=== PATIENT | male | born 1940 | race Caucasian/White ===

== ENCOUNTER 2019-04-07 12:20 | Day surgery (SDC) | payer OTHER ==
[2019-04-07] VITALS (7 sets, daily range): BP systolic 124–147; BP diastolic 64–85
[~2019-04-07] VITALS: Ht 177.8 cm; Wt 88.1 kg
[2019-04-07] MEDS ORDERED: FLEC150T PO (12:54)
[2019-04-07] MEDS ORDERED: EPLE25TA4 PO (12:54)
[2019-04-07] MEDS ORDERED: APIX5TAB3 PO (12:54)
[2019-04-07] MEDS ORDERED: ATOR20TA66 PO (12:54)
[2019-04-07] MEDS ORDERED: BISO1TAB38 PO (12:54)
[2019-04-07] MEDS ORDERED: AMLO5TAB PO (12:54)
[2019-04-07] MEDS ORDERED: normal saline 1,000 ML IV SCH (13:05)
[2019-04-07 13:19] LABS: BASOPHILS % (AUTO) 0.6 % (0-1); EOSINOPHILS # (AUTO) 0.1 X10'3 (0-0.9); EOSINOPHILS % (AUTO) 1.5 % (0-6); HEMATOCRIT 47.4 % (42.0-52.0); HEMOGLOBIN 16.2 g/dl (14.0-17.9); LYMPHOCYTES # (AUTO) 0.7 X10'3 (1.1-4.8); LYMPHOCYTES % (AUTO) 12.1 % (21-51); MEAN CORPUSCULAR HEMOGLOBIN 31.3 PG (27.0-31.0); MEAN CORPUSCULAR HGB CONC 34.2 g/dL (33.0-36.5); MEAN CORPUSCULAR VOLUME 91.6 FL (78-98); MEAN PLATELET VOLUME 7.6 FL (7.4-10.4); MONOCYTES # (AUTO) 0.6 X10'3 (0-0.9); NEUTROPHILS # (AUTO) 4.6 X10'3 (1.8-7.7); NEUTROPHILS % (AUTO) 75.8 % (42-75); PLATELET COUNT 183 X10'3 (140-440); RED BLOOD COUNT 5.17 X10'6 (4.70-6.10); RED CELL DISTRIBUTION WIDTH 14.1 % (11.5-14.5); WHITE BLOOD COUNT 6.1 X10'3 (4.5-11.0)
[2019-04-07 13:28] LABS: ALBUMIN 4.4 G/DL (3.4-5.0); ANION GAP 9 (8-16); BLOOD UREA NITROGEN 22 MG/DL (7-18); CALCIUM 9.5 MG/DL (8.5-10.1); CHLORIDE 105 MMOL/L (99-107); CREATININE 1.57 MG/DL (0.60-1.10); GLUCOSE 92 MG/DL (70-104); POTASSIUM 4.1 MMOL/L (3.5-5.1); SODIUM 141 MMOL/L (135-145); TOTAL CARBON DIOXIDE 27.3 MMOL/L (24-32); eGFR 43 ML/MIN
[2019-04-07] MEDS ORDERED: ceFAZolin 1000mg inj ONE (14:04)
[2019-04-07] MEDS ORDERED: vancomycin 1,000mg inj ONE (14:04)
[2019-04-07] MEDS ORDERED: LIDOcaine 1% W/epiNEPHrine 1:100,000 20ml vial ONE (14:04)
[2019-04-07] MEDS ORDERED: midazolam 2 mg/2 ml injection ONE ×2 (14:47→14:49)
[2019-04-07] MEDS ORDERED: fentaNYL/PF 50MCG/1 ML 2ML syringe ONE (14:47)
== END 2019-04-07 17:45 | disposition home or self-care (01) ==
LOC: SSTAY O 12:20
PROVIDERS: ATTEND Internal Medicine Cardiovascular Disease
DX: I44.2 Atrioventricular block, complete (principal); I48.0 Paroxysmal atrial fibrillation; E78.5 Hyperlipidemia, unspecified; Z87.11 Personal history of peptic ulcer disease; Z95.1 Presence of aortocoronary bypass graft; Z86.73 Personal history of transient ischemic attack (TIA), and cerebral infarction without residual deficits; Z98.890 Other specified postprocedural states; Z79.899 Other long term (current) drug therapy; Z88.8 Allergy status to other drugs, medicaments and biological substances
CPT/HCPCS: 33208; 36415; 71046; 80048; 83735; 85025; 85610; 93005; 99152; 99153; C1769; C1785; C1898; J0690; J2250; J3010; J3370; J7030; J7050; A4565; A4620

== ENCOUNTER 2019-06-29 03:08 | Inpatient (IN) | payer MEDICARE, OTHER ==
[~2019-06-29] VITALS: Ht 175.3 cm; Wt 89.2 kg
[~2019-06-29 03:08] MED LIST: AMLO5TAB PO; APIX5TAB3 PO; ATOR20TA66 PO; BISO1TAB38 PO; EPLE25TA4 PO; FLEC150T PO
[2019-06-29] MEDS ORDERED: normal saline 1000ML IV soln IVB ONE (03:20)
--- NOTE | 2019-06-29 03:37 | NUR ---
PT TO CT VIA STRETCHER AND MONITORING WITH RN
[2019-06-29 03:43] LABS: EOSINOPHILS # (AUTO) 0.2 X10'3 (0-0.9); EOSINOPHILS % (AUTO) 2.6 % (0-6); LYMPHOCYTES # (AUTO) 0.9 X10'3 (1.1-4.8); LYMPHOCYTES % (AUTO) 12.9 % (21-51); MONOCYTES # (AUTO) 0.7 X10'3 (0-0.9); PLATELET COUNT 172 X10'3 (140-440); RED CELL DISTRIBUTION WIDTH 14.4 % (11.5-14.5)
[2019-06-29 03:45] LABS: BASOPHILS % (AUTO) 0.5 % (0-1); MEAN CORPUSCULAR HEMOGLOBIN 28.1 PG (27.0-31.0); MEAN CORPUSCULAR HGB CONC 33.2 g/dL (33.0-36.5); MEAN CORPUSCULAR VOLUME 84.5 FL (78-98); MEAN PLATELET VOLUME 8.2 FL (7.4-10.4); MONOCYTES % (AUTO) 10.8 % (2-12); NEUTROPHILS % (AUTO) 73.2 % (42-75); RED BLOOD COUNT 4.62 X10'6 (4.70-6.10); WHITE BLOOD COUNT 6.8 X10'3 (4.5-11.0)
[2019-06-29 03:52] LABS: PARTIAL THROMBOPLASTIN TIME 29 SECONDS (22-32)
[2019-06-29 03:55] LABS: ALANINE AMINOTRANSFERASE 17 U/L (12-78); ALBUMIN 3.6 G/DL (3.4-5.0); ALBUMIN/GLOBULIN RATIO 1.1 (1.1-1.5); ALKALINE PHOSPHATASE 96 IU/L (46-116); ANION GAP 10 (8-16); ASPARTATE AMINO TRANSFERASE 18 U/L (10-37); BILIRUBIN,TOTAL 0.9 MG/DL (0.1-1.0); BLOOD UREA NITROGEN 24 MG/DL (7-18); BUN/CREATININE RATIO 14.7 (5.4-32.0); CALCIUM 9.4 MG/DL (8.5-10.1); CHLORIDE 107 MMOL/L (99-107); CREATININE 1.63 MG/DL (0.60-1.10); GLUCOSE 119 MG/DL (70-104); POTASSIUM 3.9 MMOL/L (3.5-5.1); SODIUM 142 MMOL/L (135-145); TOTAL CARBON DIOXIDE 25.3 MMOL/L (24-32); TOTAL PROTEIN 6.8 G/DL (6.4-8.2); eGFR 41 ML/MIN
[2019-06-29] MEDS ORDERED: APIX5TAB3 PO (04:01)
[2019-06-29] MEDS ORDERED: mag hydrox/Alum hydrox/simeth 30ml oral suspension PO PRN (05:05)
[2019-06-29] MEDS ORDERED: magnesium 2GM in 50ml NS 50 ML IV PRN (05:05)
[2019-06-29] MEDS ORDERED: magnesium Cl slow-release 64mg tablet PO PRN (05:05)
[2019-06-29] MEDS ORDERED: ondansetron/PF 4mg/2ml inj IV PRN (05:05)
[2019-06-29] MEDS ORDERED: potassium CL 10mEq/100ml bag 100 ML IV PRN ×2 (05:05)
[2019-06-29] MEDS ORDERED: magnesium hydroxide 30ml (MOM) UD suspension PO PRN (05:05)
[2019-06-29] MEDS ORDERED: acetaminophen 325mg tablet PO PRN (05:05)
[2019-06-29] MEDS ORDERED: magnesium 4gm in 100ml NS 100 ML IV PRN (05:05)
[2019-06-29] MEDS ORDERED: potassium Cl 20 mEq SR tablet PO PRN ×2 (05:05)
--- NOTE | 2019-06-29 06:43 | NUR ---
Received report from Gisela BRYAN RN.
--- NOTE | 2019-06-29 07:00 | NUR ---
Arrived to room 315 at this time.
[2019-06-29 08:00] VITALS: BP 144/83
[2019-06-29] MEDS: BISOPROLOL FUMARATE PO SCH (08:00)
[2019-06-29] MEDS: K and/or MAG REPLACEMENT MC SCH ×2 (08:00→20:00)
[2019-06-29] MEDS ORDERED: BISOPROLOL FUMARATE PO SCH (08:00)
[2019-06-29] MEDS: HCTZ PO SCH (08:00)
[2019-06-29] MEDS ORDERED: HCTZ PO SCH (08:00)
[2019-06-29] MEDS: apixaban 5mg tablet PO SCH ×2 (09:03→21:34)
[2019-06-29] MEDS: flecainide 50mg tablet PO SCH ×3 (09:03→21:34)
[2019-06-29 09:18] LABS: CLARITY,URINE CLEAR (Clear); COLOR,URINE YELLOW (Yellow); GLUCOSE, URINE NEGATIVE (Neg); KETONES,URINE NEGATIVE (Neg); LEUKOCYTE ESTERASE ,URINE NEGATIVE (Neg); NITRITES, URINE NEGATIVE (Neg); OCCULT BLOOD,URINE NEGATIVE (Neg); PROTEIN,URINE NEGATIVE (Neg); UROBILINOGEN,URINE 0.2 E.U/dL (0.2-1.0)
[2019-06-29 09:19] LABS: UA COLLECTION TYPE NON-SPECIFIED
[2019-06-29 11:00] VITALS: BP 135/72
[2019-06-29 15:00] VITALS: BP 143/77
[2019-06-29 18:00] VITALS: BP 173/104
--- NOTE | 2019-06-29 18:10 | NUR ---
Problems reprioritized. Patient report given, questions answered & plan of care reviewed with Jami BERUMEN.
--- NOTE | 2019-06-29 18:45 | NUR ---
received report from ATA Bill
[2019-06-29] MEDS: atorvastatin 20mg tablet PO SCH (21:00)
[2019-06-29 22:00] VITALS: BP 141/83
[2019-06-30] VITALS (12 sets, daily range): BP systolic 108–160; BP diastolic 65–89
[2019-06-30 06:16] LABS: BASOPHILS # (AUTO) 0.1 X10'3 (0-0.2); BASOPHILS % (AUTO) 1.2 % (0-1); EOSINOPHILS # (AUTO) 0.2 X10'3 (0-0.9); EOSINOPHILS % (AUTO) 3.6 % (0-6); HEMOGLOBIN 12.2 g/dl (14.0-17.9); LYMPHOCYTES # (AUTO) 0.9 X10'3 (1.1-4.8); LYMPHOCYTES % (AUTO) 16.2 % (21-51); MEAN CORPUSCULAR HEMOGLOBIN 27.9 PG (27.0-31.0); MEAN CORPUSCULAR HGB CONC 33.1 g/dL (33.0-36.5); MEAN CORPUSCULAR VOLUME 84.3 FL (78-98); MEAN PLATELET VOLUME 8.1 FL (7.4-10.4); MONOCYTES # (AUTO) 0.6 X10'3 (0-0.9); MONOCYTES % (AUTO) 10.5 % (2-12); NEUTROPHILS % (AUTO) 68.5 % (42-75); PLATELET COUNT 163 X10'3 (140-440); RED BLOOD COUNT 4.38 X10'6 (4.70-6.10); WHITE BLOOD COUNT 5.8 X10'3 (4.5-11.0)
--- NOTE | 2019-06-30 06:26 | NUR ---
gave report to ATA Bill
--- NOTE | 2019-06-30 06:30 | NUR ---
Patient in room MED 315. I have received report from Jami BERUMEN and had the opportunity to ask questions and assume patient care.
[2019-06-30 06:33] LABS: ALANINE AMINOTRANSFERASE 13 U/L (12-78); ALBUMIN 3.3 G/DL (3.4-5.0); ALBUMIN/GLOBULIN RATIO 1.2 (1.1-1.5); ALKALINE PHOSPHATASE 92 IU/L (46-116); ANION GAP 9 (8-16); ASPARTATE AMINO TRANSFERASE 16 U/L (10-37); BILIRUBIN,TOTAL 1.4 MG/DL (0.1-1.0); BLOOD UREA NITROGEN 20 MG/DL (7-18); BUN/CREATININE RATIO 13.5 (5.4-32.0); CALCIUM 8.6 MG/DL (8.5-10.1); CHLORIDE 108 MMOL/L (99-107); CREATININE 1.48 MG/DL (0.60-1.10); GLUCOSE 86 MG/DL (70-104); MAGNESIUM 1.9 MG/DL (1.5-2.4); SODIUM 143 MMOL/L (135-145); TOTAL CARBON DIOXIDE 26.5 MMOL/L (24-32); TOTAL PROTEIN 6.1 G/DL (6.4-8.2); eGFR 46 ML/MIN
[2019-06-30] MEDS: apixaban 5mg tablet PO SCH (08:00)
[2019-06-30] MEDS: K and/or MAG REPLACEMENT MC SCH ×2 (08:00→20:00)
[2019-06-30] MEDS: BISOPROLOL FUMARATE PO SCH (08:38)
[2019-06-30] MEDS: flecainide 50mg tablet PO SCH ×3 (08:38→20:39)
[2019-06-30] MEDS: HCTZ PO SCH (08:38)
--- NOTE | 2019-06-30 14:48 | NUR ---
[facility] laborer tan house RN here for transport down for pacemaker lead revision at this time with Dr. Dobbins.
[2019-06-30] MEDS ORDERED: proCHLORperazine 10 MG/2 ml inj ONE (15:00)
[2019-06-30] MEDS ORDERED: fentaNYL/PF 50MCG/1 ML 2ML syringe ONE ×3 (15:01→17:26)
[2019-06-30] MEDS ORDERED: vancomycin 1,000mg inj ONE (15:01)
[2019-06-30] MEDS ORDERED: midazolam 2 mg/2 ml injection ONE ×3 (15:01→16:25)
[2019-06-30] MEDS ORDERED: ceFAZolin 1000mg inj ONE ×2 (15:02→15:03)
[2019-06-30] MEDS ORDERED: LIDOcaine 1% W/epiNEPHrine 1:100,000 20ml vial ONE (15:27)
[2019-06-30] MEDS ORDERED: iohexol 350MG/ML 100ml bottle IV ONE (17:06)
--- NOTE | 2019-06-30 17:44 | NUR ---
Dr. Espinoza called re: patient rectal bleeding. Patient states the bleed is from his hemorrhoids which he's had for a long time. MD wishes to get a colonoscopy for patient if he consents. Will ask patient how he feels about this once he returns from pacer revision. Will pass this information onto noc shift nurse.
--- NOTE | 2019-06-30 18:10 | NUR ---
Patient in room MED 315. I have received report from Landy BERUMEN and had the opportunity to ask questions and assume patient care.
--- NOTE | 2019-06-30 18:21 | NUR ---
Problems reprioritized. Patient report given, questions answered & plan of care reviewed with Yesi BERUMEN.
--- NOTE | 2019-06-30 18:30 | NUR ---
PT ARRIVED ON UNIT IN STABLE CONDITION IN NO APPARENT DISTRESS, AT BEDSIDE.
[2019-06-30] MEDS: linezolid 600mg tablet PO SCH (20:39)
[2019-06-30] MEDS: atorvastatin 20mg tablet PO SCH (20:40)
[2019-07-01 02:00] VITALS: BP 146/62
[2019-07-01 06:17] LABS: BASOPHILS % (AUTO) 0.6 % (0-1); EOSINOPHILS # (AUTO) 0.2 X10'3 (0-0.9); EOSINOPHILS % (AUTO) 2.5 % (0-6); HEMATOCRIT 36.1 % (42.0-52.0); HEMOGLOBIN 11.9 g/dl (14.0-17.9); LYMPHOCYTES # (AUTO) 0.8 X10'3 (1.1-4.8); LYMPHOCYTES % (AUTO) 11.7 % (21-51); MEAN CORPUSCULAR HEMOGLOBIN 27.7 PG (27.0-31.0); MEAN CORPUSCULAR HGB CONC 32.9 g/dL (33.0-36.5); MEAN CORPUSCULAR VOLUME 84.2 FL (78-98); MEAN PLATELET VOLUME 8.2 FL (7.4-10.4); MONOCYTES # (AUTO) 0.8 X10'3 (0-0.9); MONOCYTES % (AUTO) 11.6 % (2-12); NEUTROPHILS % (AUTO) 73.6 % (42-75); PLATELET COUNT 181 X10'3 (140-440); RED BLOOD COUNT 4.29 X10'6 (4.70-6.10); RED CELL DISTRIBUTION WIDTH 14.3 % (11.5-14.5); WHITE BLOOD COUNT 6.9 X10'3 (4.5-11.0)
[2019-07-01 06:30] VITALS: BP 126/82
--- NOTE | 2019-07-01 06:30 | NUR ---
Patient in room MED 315. I have received report from RICARDO BERUMEN and had the opportunity to ask questions and assume patient care.
--- NOTE | 2019-07-01 06:45 | NUR ---
Problems reprioritized. Patient report given, questions answered & plan of care reviewed with Landy BERUMEN.
[2019-07-01 06:47] LABS: ALANINE AMINOTRANSFERASE 13 U/L (12-78); ALBUMIN 3.3 G/DL (3.4-5.0); ALBUMIN/GLOBULIN RATIO 1.1 (1.1-1.5); ALKALINE PHOSPHATASE 91 IU/L (46-116); ANION GAP 9 (8-16); ASPARTATE AMINO TRANSFERASE 17 U/L (10-37); BILIRUBIN,TOTAL 1.3 MG/DL (0.1-1.0); BLOOD UREA NITROGEN 18 MG/DL (7-18); BUN/CREATININE RATIO 12.3 (5.4-32.0); CALCIUM 8.5 MG/DL (8.5-10.1); CHLORIDE 106 MMOL/L (99-107); CREATININE 1.46 MG/DL (0.60-1.10); GLUCOSE 76 MG/DL (70-104); MAGNESIUM 1.8 MG/DL (1.5-2.4); POTASSIUM 4.1 MMOL/L (3.5-5.1); SODIUM 142 MMOL/L (135-145); TOTAL PROTEIN 6.2 G/DL (6.4-8.2); eGFR 47 ML/MIN
[2019-07-01] MEDS: K and/or MAG REPLACEMENT MC SCH (08:00)
[2019-07-01] MEDS: HCTZ PO SCH (08:41)
[2019-07-01] MEDS: BISOPROLOL FUMARATE PO SCH (08:41)
[2019-07-01] MEDS: flecainide 50mg tablet PO SCH ×2 (08:42→13:34)
[2019-07-01] MEDS: linezolid 600mg tablet PO SCH (08:42)
--- NOTE | 2019-07-01 10:52 | NUR ---
PAGED HOSPITALIST, "ERI Dowling63- NADIA PADILLA IN 315, DISCHARGING TODAY? DR. HOROWITZ STILL TO ROUND."
[2019-07-01 11:00] VITALS: BP 119/72
--- NOTE | 2019-07-01 11:30 | NUR ---
Dr. Espinoza rounded on patient, doesn't feel comfortable discharging patient at this time with redness and swelling noted. Stated that this nurse will call Dr. Dobbins.
--- NOTE | 2019-07-01 11:55 | NUR ---
Called Dr. Dobbins to make aware of new redness extending beyond 0630 markings and more swelling noted, applied pressure dressing and po antibiotics are ordered. No new orders noted, Dr. Dobbins states he'll be in this afternoon to see patient. at bedside.
--- NOTE | 2019-07-01 13:15 | NUR ---
DR. HOROWITZ AT BEDSIDE, PLANS TO DISCHARGE TODAY
--- NOTE | 2019-07-01 14:57 | NUR ---
Pt receiving Zyvox seen at bedside with SO present provided with written and verbal low tyramine nutrition therapy education. All of patient/SO questions were answered at this time. RD contact information provided. Will continue to follow. Addendum: 07/01/19 at [address] Amended: Links added.
[2019-07-01 15:00] VITALS: BP 107/62
--- NOTE | 2019-07-01 16:06 | NUR ---
Called medication Zyvox into [facility] pharmacy on . IV removed, Tele removed. Discharge instructions discussed, verbalized understanding. Belongings to go home with patient. Addendum: 07/01/19 at 1613 by Landy Kerns RN Returned 2 home medications to patient at this time.
--- NOTE | 2019-07-01 16:18 | NUR ---
Patient escorted out via staff to car per staff, ambulated to patient vehicle without event. Got dressed and took belongings home. Patient eager to go home and will warp picker Zyvox from [facility] pharmacy. Written prescription in hand.
[2019-07-01] MEDS ORDERED: lactobacillus rhamnosus 10,000 MMU CELLS/CAPSULE PO SCH (20:00)
[2019-07-01] MEDS ORDERED: LINE600T11 PO (23:15)
--- NOTE | 2019-07-03 10:24 | NUR ---
Case management DC follow up: Pt re-admitted into the hospital. post op complications Addendum: 07/03/19 at 1025 by Layla Reyes RN Case management DC follow up: Pt re-admitted into the hospital. post op complications [id number]
[2019-07-05] MEDS ORDERED: CEPH500C5 PO (10:42)
== END 2019-07-01 16:20 | disposition home or self-care (01) | DRG 242 ==
LOC: ER 03:09 → ED HOLD 05:05 → MED 3N 07:00 → CMPBEDREQ 07:09
PROVIDERS: ADMIT Internal Medicine; ATTEND Family Medicine
PROC: 0JH607Z Insertion of Cardiac Resynchronization Pacemaker Pulse Generator into Chest Subcutaneous Tissue and Fascia, Open Approach (ICD-10-PCS; principal; 2019-06-30)
PROC: 02HK3JZ Insertion of Pacemaker Lead into Right Ventricle, Percutaneous Approach (ICD-10-PCS; 2019-06-30)
PROC: 0JPT0PZ Removal of Cardiac Rhythm Related Device from Trunk Subcutaneous Tissue and Fascia, Open Approach (ICD-10-PCS; 2019-06-30)
PROC: 02PA3MZ Removal of Cardiac Lead from Heart, Percutaneous Approach (ICD-10-PCS; 2019-06-30)
PROC: 02H43JZ Insertion of Pacemaker Lead into Coronary Vein, Percutaneous Approach (ICD-10-PCS; 2019-06-30)
PROC: B2151ZZ Fluoroscopy of Left Heart using Low Osmolar Contrast (ICD-10-PCS; 2019-06-30)
DX: I44.2 Atrioventricular block, complete (principal); I21.A1 Myocardial infarction type 2; N17.9 Acute kidney failure, unspecified; I42.8 Other cardiomyopathies; N18.3 Chronic kidney disease, stage 3 (moderate); I48.91 Unspecified atrial fibrillation; I47.2 Ventricular tachycardia; E78.5 Hyperlipidemia, unspecified; I25.10 Atherosclerotic heart disease of native coronary artery without angina pectoris; S09.90XA Unspecified injury of head, initial encounter; N18.9 Chronic kidney disease, unspecified; K64.9 Unspecified hemorrhoids; Z95.1 Presence of aortocoronary bypass graft; Z95.0 Presence of cardiac pacemaker; Z79.01 Long term (current) use of anticoagulants; W18.39XA Other fall on same level, initial encounter; Y93.89 Activity, other specified; Y92.89 Other specified places as the place of occurrence of the external cause; Y99.8 Other external cause status
CPT/HCPCS: 33221; 33225; 36415; 70450; 71045; 71046; 80053; 81003; 83605; 83735; 83880; 84145; 84484; 85025; 85610; 85730; 87040; 87081; 93005; 99152; 99153; 99285; A4565; A4620; C1769; C1777; C1882; C1887; C1894; C1898; C1900; G0378; J0690; J0780; J2250; J3010; J3370; J7030; J7050; Q9967

== ENCOUNTER 2019-09-13 12:57 | Inpatient (IN) | payer MEDICARE, OTHER ==
[~2019-09-13] VITALS: Ht 177.8 cm; Wt 79.5 kg
[~2019-09-13 12:57] MED LIST changes: -AMLO5TAB PO; +CEPH500C5 PO
--- NOTE | 2019-09-13 14:30 | NUR ---
talked with pt's . Per "he doesn't know what he's talking about". pt has back pain, hemerrhoids that are bleeding, fluid in lungs and needs lab work. Elizabeth Beck [phone]
[2019-09-13 16:04] LABS: BASOPHILS # (AUTO) 0.1 X10'3 (0-0.2); BASOPHILS % (AUTO) 0.9 % (0-1); EOSINOPHILS % (AUTO) 0.7 % (0-6); HEMATOCRIT 32.7 % (42.0-52.0); HEMOGLOBIN 10.2 g/dl (14.0-17.9); LYMPHOCYTES # (AUTO) 0.7 X10'3 (1.1-4.8); MEAN CORPUSCULAR HGB CONC 31.1 g/dL (33.0-36.5); MEAN CORPUSCULAR VOLUME 77.2 FL (78-98); MEAN PLATELET VOLUME 8.5 FL (7.4-10.4); MONOCYTES # (AUTO) 0.7 X10'3 (0-0.9); MONOCYTES % (AUTO) 11.6 % (2-12); NEUTROPHILS # (AUTO) 4.3 X10'3 (1.8-7.7); NEUTROPHILS % (AUTO) 74.8 % (42-75); PLATELET COUNT 186 X10'3 (140-440); RED BLOOD COUNT 4.23 X10'6 (4.70-6.10); RED CELL DISTRIBUTION WIDTH 16.8 % (11.5-14.5); WHITE BLOOD COUNT 5.7 X10'3 (4.5-11.0)
[2019-09-13 16:16] LABS: ALANINE AMINOTRANSFERASE 33 U/L (12-78); ALBUMIN 3.4 G/DL (3.4-5.0); ALBUMIN/GLOBULIN RATIO 1.3 (1.1-1.5); ALKALINE PHOSPHATASE 105 IU/L (46-116); ANION GAP 9 (8-16); ASPARTATE AMINO TRANSFERASE 28 U/L (10-37); BILIRUBIN,TOTAL 1.6 MG/DL (0.1-1.0); BLOOD UREA NITROGEN 29 MG/DL (7-18); BUN/CREATININE RATIO 16.9 (5.4-32.0); CALCIUM 9.2 MG/DL (8.5-10.1); CHLORIDE 104 MMOL/L (99-107); CREATININE 1.72 MG/DL (0.60-1.10); GLUCOSE 97 MG/DL (70-104); POTASSIUM 3.8 MMOL/L (3.5-5.1); SODIUM 139 MMOL/L (135-145); TOTAL CARBON DIOXIDE 26.2 MMOL/L (24-32); TOTAL PROTEIN 6.1 G/DL (6.4-8.2); eGFR 38 ML/MIN
[2019-09-13] MEDS ORDERED: heparin 10,000 units/1 ML INJ IV ONE (16:35)
[2019-09-13] MEDS ORDERED: aspirin 81mg tab.chew PO ONE (16:35)
--- NOTE | 2019-09-13 16:46 | NUR ---
pt out to ct via wheelchair with unified communications architect
[2019-09-13] MEDS ORDERED: iohexol 350MG/ML 100ml bottle IV ONE (16:47)
--- NOTE | 2019-09-13 16:58 | NUR ---
pt returns from ct
[2019-09-13] MEDS: heparin 25,000 UNIT/250ml bag 250 ML IV SCH (17:01)
[2019-09-13] MEDS ORDERED: HYDROcodone/acetaminophen 5mg/325mg tablet PO PRN (17:20)
[2019-09-13] MEDS ORDERED: ondansetron/PF 4mg/2ml inj IV PRN (17:20)
[2019-09-13] MEDS ORDERED: magnesium hydroxide 30ml (MOM) UD suspension PO PRN (17:20)
[2019-09-13] MEDS ORDERED: nitroGLYCERIN 0.4mg SUBLingual tab SL PRN (17:20)
[2019-09-13] MEDS ORDERED: morphine 2 MG/ML inj. syringe IV PRN ×2 (17:20)
[2019-09-13] MEDS ORDERED: acetaminophen 325mg tablet PO PRN (17:20)
[2019-09-13] MEDS ORDERED: mag hydrox/Alum hydrox/simeth 30ml oral suspension PO PRN (17:20)
[2019-09-13] MEDS ORDERED: POTA-82 PO (20:03)
[2019-09-13] MEDS ORDERED: FURO20TA4 PO (20:03)
[2019-09-13] MEDS ORDERED: FLEC100T2 PO (20:03)
[2019-09-13] MEDS ORDERED: AMLO5TAB16 PO (20:03)
--- NOTE | 2019-09-13 22:01 | NUR ---
Patient in room ED 10. I have received report from ATA Mnedez and had the opportunity to ask questions and assume patient care.
[2019-09-13 22:30] VITALS: BP 134/76
[2019-09-14] VITALS (17 sets, daily range): BP systolic 110–147; BP diastolic 57–99
[2019-09-14] MEDS: heparin 25,000 UNIT/250ml bag 250 ML IV SCH (01:08)
[2019-09-14 04:22] LABS: ALBUMIN 3.3 G/DL (3.4-5.0); ANION GAP 8 (8-16); BLOOD UREA NITROGEN 29 MG/DL (7-18); BUN/CREATININE RATIO 17.5 (5.4-32.0); CHLORIDE 104 MMOL/L (99-107); CHOL/HDL RATIO 2.1 (0.00-4.99); CHOLESTEROL 66 MG/DL (0-200); CREATININE 1.66 MG/DL (0.60-1.10); GLUCOSE 86 MG/DL (70-104); HDL CHOLESTEROL 31 MG/DL (35-60); LDL CHOLESTEROL 30 MG/DL (50-100); POTASSIUM 3.8 MMOL/L (3.5-5.1); SODIUM 138 MMOL/L (135-145); TOTAL CARBON DIOXIDE 25.7 MMOL/L (24-32); TRIGLYCERIDES 44 MG/DL (20-135); eGFR 40 ML/MIN
--- NOTE | 2019-09-14 06:10 | NUR ---
Patient in room PCU 3016. I have received report from ATA Lea and had the opportunity to ask questions and assume patient care.
--- NOTE | 2019-09-14 06:25 | NUR ---
Problems reprioritized. Patient report given, questions answered & plan of care reviewed with ATA Ureña.
[2019-09-14] MEDS: aspirin 81mg tablet.DR PO SCH (07:19)
[2019-09-14 07:37] LABS: HEMATOCRIT 31.6 % (42.0-52.0); MEAN CORPUSCULAR HEMOGLOBIN 24.3 PG (27.0-31.0); MEAN CORPUSCULAR HGB CONC 31.6 g/dL (33.0-36.5); MEAN CORPUSCULAR VOLUME 76.8 FL (78-98); PLATELET COUNT 180 X10'3 (140-440); RED BLOOD COUNT 4.11 X10'6 (4.70-6.10); RED CELL DISTRIBUTION WIDTH 16.6 % (11.5-14.5); WHITE BLOOD COUNT 4.6 X10'3 (4.5-11.0)
[2019-09-14 07:38] LABS: BASOPHILS # (AUTO) 0.1 X10'3 (0-0.2); BASOPHILS % (AUTO) 1.8 % (0-1); EOSINOPHILS # (AUTO) 0.1 X10'3 (0-0.9); EOSINOPHILS % (AUTO) 3.1 % (0-6); LYMPHOCYTES # (AUTO) 0.8 X10'3 (1.1-4.8); LYMPHOCYTES % (AUTO) 17.1 % (21-51); MEAN PLATELET VOLUME 8.4 FL (7.4-10.4); MONOCYTES # (AUTO) 0.6 X10'3 (0-0.9); MONOCYTES % (AUTO) 13.9 % (2-12); NEUTROPHILS % (AUTO) 64.1 % (42-75)
[2019-09-14] MEDS: flecainide 50mg tablet PO SCH ×3 (09:38→20:45)
[2019-09-14] MEDS: apixaban 5mg tablet PO SCH ×2 (09:39→20:45)
[2019-09-14] MEDS: amLODIPine 5mg tablet PO SCH (09:39)
--- NOTE | 2019-09-14 09:45 | NUR ---
Received orders to stop heparin GTTS per Dr. Gallagher
--- NOTE | 2019-09-14 09:55 | NUR ---
Spoke to Dr. Gallagher regarding plan of care. She ordered 1 unit of RBC to be given after consent and an occult stool sample is retrieved. Repeat Hemogram 1 hour after blood transfusion is complete
--- NOTE | 2019-09-14 13:14 | NUR ---
PAGER ID: [phone] MESSAGE: [phone] Austen Geronimo: TONIA we collected stool for occult bleeding, patient does have active hemorrhoids and has significant bleeding, will transfuse 1 unit of blood and repeat hemagram. will keep you updated. thanks Edilia [phone]
[2019-09-14 13:21] LABS: OCCULT BLOOD STOOL POSITIVE (Neg)
[2019-09-14] MEDS ORDERED: PSYL575P22 PO (15:06)
--- NOTE | 2019-09-14 15:15 | NUR ---
Prior to blood reaching the patient, patient reports feeling dizziness and short of breath. Requested charge nurse and preceptor to assess patient. Currently stable vital signs. Blood administration resumed at 60ml's/hr per protocol.
--- NOTE | 2019-09-14 16:26 | NUR ---
Awaiting MD orders. PAGER ID: [phone] MESSAGE: Re: [id number] Austen Geronimo. Pt. verbalizes intermittent SOB and dizziness prior to blood administration. Blood started at 1500, VS remained stable. Left Lung base now diminished/ wheezes present. Do you want a CXRAY/RT eval? Collette [facility]#[id number]
--- NOTE | 2019-09-14 18:00 | NUR ---
Patient in room PCU 3016. I have received report from Dave and had the opportunity to ask questions and assume patient care.
[2019-09-14] MEDS: DOBUTamine-DoBUTrex 500mg/D5W 250 ML IV SCH (18:05)
--- NOTE | 2019-09-14 18:15 | NUR ---
Patient in room PCU 3016. I have received report from ATA Beatty and had the opportunity to ask questions and assume patient care.
--- NOTE | 2019-09-14 18:21 | NUR ---
Problems reprioritized. Patient report given, questions answered & plan of care reviewed with Neeru BERUMEN.
[2019-09-14 18:39] LABS: HEMOGLOBIN 10.7 g/dl (14.0-17.9); MEAN CORPUSCULAR HEMOGLOBIN 24.5 PG (27.0-31.0); MEAN CORPUSCULAR HGB CONC 31.3 g/dL (33.0-36.5); MEAN CORPUSCULAR VOLUME 78.3 FL (78-98); MEAN PLATELET VOLUME 8.2 FL (7.4-10.4); PLATELET COUNT 184 X10'3 (140-440); RED BLOOD COUNT 4.35 X10'6 (4.70-6.10); RED CELL DISTRIBUTION WIDTH 16.9 % (11.5-14.5); WHITE BLOOD COUNT 5.4 X10'3 (4.5-11.0)
--- NOTE | 2019-09-14 19:42 | NUR ---
Patient said he is ok to take atorvastatin and has been taking it at home without symptoms. He had symptoms instead when the atorvastatin was on hold by his doctor.
[2019-09-14] MEDS: atorvastatin 20mg tablet PO SCH (20:45)
--- NOTE | 2019-09-14 21:00 | NUR ---
Patient has atorvastatin listed as an allergy. I asked him before giving him his evening dose what kind of reaction he has to it. He stated that he takes it in his daily medications at home and tolerates it just fine.
[2019-09-15] VITALS (12 sets, daily range): BP systolic 103–134; BP diastolic 13–83
--- NOTE | 2019-09-15 02:06 | NUR ---
MD notified for patient bleeding out of hemorrhoids more than usual and he was on a heparin drop that was stopped because of increase in bleeding as well. MD gave new orders to try Syds, but pharmacy does not carry that or anything similar. MD called again and notified Tucks is not available and said ok and no new orders at this time.
--- NOTE | 2019-09-15 05:48 | NUR ---
Orientee documentation: I have reviewed and agree with all interventions, assessments performed and documented by Hellen Layne RN. Orientee Medication Administration: For the medication-pass during this shift, all medication were reviewed, dispensed, administered and documented per hospital policy by Hellen Layne RN.
--- NOTE | 2019-09-15 06:05 | NUR ---
Problems reprioritized. Patient report given, questions answered & plan of care reviewed with Vick[].
[2019-09-15 06:18] LABS: ALBUMIN 3.1 G/DL (3.4-5.0); ANION GAP 7 (8-16); BLOOD UREA NITROGEN 24 MG/DL (7-18); BUN/CREATININE RATIO 15.1 (5.4-32.0); CALCIUM 8.7 MG/DL (8.5-10.1); CHLORIDE 106 MMOL/L (99-107); CREATININE 1.59 MG/DL (0.60-1.10); GLUCOSE 90 MG/DL (70-104); POTASSIUM 3.8 MMOL/L (3.5-5.1); SODIUM 141 MMOL/L (135-145); TOTAL CARBON DIOXIDE 27.6 MMOL/L (24-32); eGFR 42 ML/MIN
--- NOTE | 2019-09-15 06:18 | NUR ---
Patient in room PCU 3016. I have received report from Neeru BERUMEN and had the opportunity to ask questions and assume patient care.
[2019-09-15 06:19] LABS: BASOPHILS % (AUTO) 0.5 % (0-1); EOSINOPHILS # (AUTO) 0.1 X10'3 (0-0.9); EOSINOPHILS % (AUTO) 0.9 % (0-6); HEMATOCRIT 29.7 % (42.0-52.0); HEMOGLOBIN 9.6 g/dl (14.0-17.9); LYMPHOCYTES # (AUTO) 0.5 X10'3 (1.1-4.8); LYMPHOCYTES % (AUTO) 8.7 % (21-51); MEAN CORPUSCULAR HEMOGLOBIN 24.7 PG (27.0-31.0); MEAN CORPUSCULAR HGB CONC 32.4 g/dL (33.0-36.5); MEAN CORPUSCULAR VOLUME 76.2 FL (78-98); MEAN PLATELET VOLUME 8.4 FL (7.4-10.4); MONOCYTES # (AUTO) 0.6 X10'3 (0-0.9); MONOCYTES % (AUTO) 10.6 % (2-12); NEUTROPHILS # (AUTO) 4.9 X10'3 (1.8-7.7); NEUTROPHILS % (AUTO) 79.3 % (42-75); PLATELET COUNT 177 X10'3 (140-440); RED BLOOD COUNT 3.89 X10'6 (4.70-6.10); RED CELL DISTRIBUTION WIDTH 16.3 % (11.5-14.5); WHITE BLOOD COUNT 6.1 X10'3 (4.5-11.0)
[2019-09-15] MEDS: apixaban 5mg tablet PO SCH ×2 (08:11→19:26)
[2019-09-15] MEDS: flecainide 50mg tablet PO SCH ×3 (08:11→21:20)
[2019-09-15] MEDS: amLODIPine 5mg tablet PO SCH (08:11)
[2019-09-15] MEDS: aspirin 81mg tablet.DR PO SCH (08:11)
[2019-09-15] MEDS ORDERED: hydrocortisone acetate 25mg rectal suppository RC PRN (11:05)
--- NOTE | 2019-09-15 18:15 | NUR ---
Problems reprioritized. Patient report given, questions answered & plan of care reviewed with Neeru BERUMEN.
--- NOTE | 2019-09-15 18:32 | NUR ---
PAGER ID: [phone] MESSAGE: [phone] Austen Gernoimo: Patient has become agitated and confused and is threatening to remove PICC line, can we get restraint orders? thanks luther
[2019-09-15] MEDS ORDERED: ALPRAZolam 0.25mg tablet PO PRN (18:35)
--- NOTE | 2019-09-15 18:35 | NUR ---
received orders for xanax 0.25mg x1 now per dr. matthews
--- NOTE | 2019-09-15 18:55 | NUR ---
PAGER ID: [phone] MESSAGE: Patient will not take Xanax PO. Can you please order a med that we can do IV or shot. Xanax is only PO Addendum: 09/15/19 at 2000 by Neeru Rae RN Patient would not take PO pill.
[2019-09-15] MEDS: LORazepam 2 mg/ml vial IV PRN (19:26)
--- NOTE | 2019-09-15 19:57 | NUR ---
MD called and notified for patient confused and trying to leave the hospital constantly trying to pull out PICC line. MD gave new orders for Ativan IV 1mg
[2019-09-15] MEDS: atorvastatin 20mg tablet PO SCH (21:20)
[2019-09-16] VITALS (17 sets, daily range): BP systolic 103–141; BP diastolic 48–85
[2019-09-16 03:56] LABS: BASOPHILS % (AUTO) 0.2 % (0-1); EOSINOPHILS % (AUTO) 0.2 % (0-6); HEMOGLOBIN 8.4 g/dl (14.0-17.9); LYMPHOCYTES # (AUTO) 0.2 X10'3 (1.1-4.8); LYMPHOCYTES % (AUTO) 5.6 % (21-51); MEAN CORPUSCULAR HEMOGLOBIN 24.5 PG (27.0-31.0); MEAN CORPUSCULAR HGB CONC 32.1 g/dL (33.0-36.5); MEAN CORPUSCULAR VOLUME 76.4 FL (78-98); MONOCYTES # (AUTO) 0.2 X10'3 (0-0.9); MONOCYTES % (AUTO) 5.3 % (2-12); NEUTROPHILS # (AUTO) 3.9 X10'3 (1.8-7.7); NEUTROPHILS % (AUTO) 88.7 % (42-75); PLATELET COUNT 175 X10'3 (140-440); RED CELL DISTRIBUTION WIDTH 16.7 % (11.5-14.5); WHITE BLOOD COUNT 4.4 X10'3 (4.5-11.0)
[2019-09-16 04:15] LABS: ANION GAP 8 (8-16); BLOOD UREA NITROGEN 18 MG/DL (7-18); BUN/CREATININE RATIO 13.4 (5.4-32.0); CALCIUM 8.4 MG/DL (8.5-10.1); CHLORIDE 108 MMOL/L (99-107); CREATININE 1.34 MG/DL (0.60-1.10); GLUCOSE 104 MG/DL (70-104); POTASSIUM 3.9 MMOL/L (3.5-5.1); SODIUM 143 MMOL/L (135-145); TOTAL CARBON DIOXIDE 27.3 MMOL/L (24-32); eGFR 51 ML/MIN
[2019-09-16] MEDS: DOBUTamine-DoBUTrex 500mg/D5W 250 ML IV SCH (04:44)
--- NOTE | 2019-09-16 06:15 | NUR ---
Problems reprioritized. Patient report given, questions answered & plan of care reviewed with ATA Beatty.
--- NOTE | 2019-09-16 06:16 | NUR ---
Patient in room PCU 3016. I have received report from Neeru BERUMEN and had the opportunity to ask questions and assume patient care.
[2019-09-16] MEDS: flecainide 50mg tablet PO SCH ×3 (07:38→20:13)
[2019-09-16] MEDS: amLODIPine 5mg tablet PO SCH (07:38)
[2019-09-16] MEDS: apixaban 5mg tablet PO SCH ×2 (07:45→20:13)
[2019-09-16] MEDS: aspirin 81mg tablet.DR PO SCH (07:45)
--- NOTE | 2019-09-16 10:45 | NUR ---
Received orders to hold dobutamine gtts in preparation for angiogram per Dr. Dobbins
[2019-09-16 12:36] LABS: CLARITY,URINE CLEAR (Clear); COLOR,URINE YELLOW (Yellow); GLUCOSE, URINE NEGATIVE (Neg); KETONES,URINE NEGATIVE (Neg); LEUKOCYTE ESTERASE ,URINE NEGATIVE (Neg); NITRITES, URINE NEGATIVE (Neg); OCCULT BLOOD,URINE NEGATIVE (Neg); PROTEIN,URINE NEGATIVE (Neg)
[2019-09-16] MEDS ORDERED: fentaNYL/PF 50MCG/1 ML 2ML syringe ONE (12:41)
[2019-09-16] MEDS ORDERED: midazolam 2 mg/2 ml injection ONE ×2 (12:41→12:57)
[2019-09-16] MEDS ORDERED: iohexol 350 MG/ML 50ML vial IV ONE (12:42)
[2019-09-16] MEDS ORDERED: iohexol 350MG/ML 100ml bottle IV ONE (12:42)
[2019-09-16] MEDS ORDERED: heparin 1,000unit/ml 10ml vial 10 ML ONE (12:42)
[2019-09-16] MEDS ORDERED: LIDOcaine 1% (10mg/ml)w/preservative injection 20ml MDV ONE (12:42)
[2019-09-16 12:52] LABS: UA COLLECTION TYPE NON-SPECIFIED
[2019-09-16] MEDS ORDERED: diphenhydrAMINE 50 mg/ml inj ONE (12:57)
[2019-09-16] MEDS ORDERED: furosemide 40mg/4ml inj ONE (13:42)
[2019-09-16] MEDS ORDERED: proCHLORperazine 10 MG/2 ml inj IV PRN (14:50)
[2019-09-16] MEDS: normal saline 1000ml 1,000 ML IV SCH (17:30)
--- NOTE | 2019-09-16 18:30 | NUR ---
Problems reprioritized. Patient report given, questions answered & plan of care reviewed with Jabier RN.
[2019-09-16] MEDS: atorvastatin 20mg tablet PO SCH (20:13)
[2019-09-16] MEDS: LORazepam 2 mg/ml vial IV PRN (20:14)
--- NOTE | 2019-09-16 22:04 | NUR ---
Pt confused attempting to get out of bed and pulling on lines. Pt refusing to answer AxO questions. Stating "NO" to all questions. Pt appears stubborn. Pt doesn't know he is at the hospital and is unable to reorientate. Pt unable to follow directions. Will restrain patient and call Dr. Butler for restraint order renewal. Will continue to monitor.
[2019-09-17] VITALS (14 sets, daily range): BP systolic 107–159; BP diastolic 37–107
--- NOTE | 2019-09-17 05:22 | NUR ---
Patient in room PCU 3012. I have received report from Amelie BERUMEN and had the opportunity to ask questions and assume patient care.
--- NOTE | 2019-09-17 06:34 | NUR ---
Problems reprioritized. Patient report given, questions answered & plan of care reviewed with Isael BERUMEN.
--- NOTE | 2019-09-17 06:34 | NUR ---
Patient in room PCU 3016. I have received report from ATA Eugene and had the opportunity to ask questions and assume patient care.
[2019-09-17 07:08] LABS: BASOPHILS % (AUTO) 0.7 % (0-1); EOSINOPHILS # (AUTO) 0.1 X10'3 (0-0.9); EOSINOPHILS % (AUTO) 2.5 % (0-6); HEMATOCRIT 26.8 % (42.0-52.0); HEMOGLOBIN 8.6 g/dl (14.0-17.9); LYMPHOCYTES # (AUTO) 0.6 X10'3 (1.1-4.8); MEAN CORPUSCULAR HEMOGLOBIN 24.9 PG (27.0-31.0); MEAN CORPUSCULAR HGB CONC 32.1 g/dL (33.0-36.5); MEAN CORPUSCULAR VOLUME 77.7 FL (78-98); MEAN PLATELET VOLUME 7.8 FL (7.4-10.4); MONOCYTES # (AUTO) 0.6 X10'3 (0-0.9); MONOCYTES % (AUTO) 9.8 % (2-12); NEUTROPHILS # (AUTO) 4.4 X10'3 (1.8-7.7); PLATELET COUNT 197 X10'3 (140-440); RED BLOOD COUNT 3.45 X10'6 (4.70-6.10); RED CELL DISTRIBUTION WIDTH 16.6 % (11.5-14.5); WHITE BLOOD COUNT 5.8 X10'3 (4.5-11.0)
[2019-09-17 07:18] LABS: ANION GAP 6 (8-16); BLOOD UREA NITROGEN 13 MG/DL (7-18); CALCIUM 8.4 MG/DL (8.5-10.1); CHLORIDE 109 MMOL/L (99-107); CHOL/HDL RATIO 2.1 (0.00-4.99); CHOLESTEROL 63 MG/DL (0-200); GLUCOSE 85 MG/DL (70-104); HDL CHOLESTEROL 30 MG/DL (35-60); LDL CHOLESTEROL 23 MG/DL (50-100); POTASSIUM 3.2 MMOL/L (3.5-5.1); SODIUM 143 MMOL/L (135-145); TOTAL CARBON DIOXIDE 28.3 MMOL/L (24-32); TRIGLYCERIDES 59 MG/DL (20-135); eGFR 53 ML/MIN
[2019-09-17] MEDS: flecainide 50mg tablet PO SCH ×3 (07:59→20:37)
[2019-09-17] MEDS: aspirin 81mg tablet.DR PO SCH (07:59)
[2019-09-17] MEDS: amLODIPine 5mg tablet PO SCH (07:59)
[2019-09-17] MEDS: apixaban 5mg tablet PO SCH ×2 (07:59→20:37)
--- NOTE | 2019-09-17 08:26 | NUR ---
PAGER ID: [phone] MESSAGE: [phone] Austen Geronimo: Stacey 3.2 Do you want replacement orders in? ATA Kirkland Ext [phone]
[2019-09-17] MEDS ORDERED: magnesium 4gm in 100ml NS 100 ML IV PRN (08:30)
[2019-09-17] MEDS ORDERED: magnesium Cl slow-release 64mg tablet PO PRN (08:30)
[2019-09-17] MEDS ORDERED: potassium CL 10mEq/100ml bag 100 ML IV PRN (08:30)
[2019-09-17] MEDS ORDERED: potassium Cl 20 mEq SR tablet PO PRN (08:30)
[2019-09-17] MEDS: potassium Cl 20 mEq SR tablet PO PRN ×2 (10:43→15:16)
--- NOTE | 2019-09-17 11:23 | NUR ---
O2 Sat at rest on room air:_92__% If below 89%: Recovery O2 Sat at rest on ___LPM:___%:___% via (mask/nasal cannula, etc..) No further documentation is necessary. If O2 Sat did not drop below 89% on room air,ambulate patient on room air. O2 Sat while ambulating on room air:_86__% Recovery O2 Sat while ambulating on _96__LPM:_2__% No further documentation is necessary. If patient does not drop below 89% while ambulating, he/she does not qualify for home O2.
--- NOTE | 2019-09-17 11:27 | NUR ---
PAGER ID: [phone] MESSAGE: [phone] Austen Geronimo Ambulated fine: Cassie said he will have to DC tomorrow due to the dobutamine authroization not being able to be done till then. ATA Kirkland Ext [phone]
[2019-09-17] MEDS: normal saline 1000ml 1,000 ML IV SCH (13:30)
--- NOTE | 2019-09-17 18:12 | NUR ---
Problems reprioritized. Patient report given, questions answered & plan of care reviewed with ATA Eugene.
--- NOTE | 2019-09-17 18:28 | NUR ---
Problems reprioritized. Patient report given, questions answered & plan of care reviewed with Isael BERUMEN.
[2019-09-17] MEDS: atorvastatin 20mg tablet PO SCH (21:00)
--- NOTE | 2019-09-17 22:00 | NUR ---
Patient coded in bathroom while this RN escorted patient to bathroom. Patient proceded to stop breathing, lost all muscle response, and collapsed into this RN's arms. RN brought patient to floor, patient remained unresponsive, no breathing, no pulse. Proceeded to call for help and begin compressions. Code blue was called immediately. Addendum: 09/18/19 at 0636 by Casey Travis RN Note that dobutamine gtt was never disconnected during transfer to bathroom. Patient stayed hooked up to the dobutamine gtt per MD order during the code until ROSC.
[2019-09-17] MEDS ORDERED: LIDOcaine 5% patch TP SCH (22:25)
[2019-09-17 22:32] LABS: BASOPHILS # (AUTO) 0.1 X10'3 (0-0.2); BASOPHILS % (AUTO) 1.6 % (0-1); EOSINOPHILS # (AUTO) 0.3 X10'3 (0-0.9); EOSINOPHILS % (AUTO) 4.8 % (0-6); HEMATOCRIT 28.9 % (42.0-52.0); HEMOGLOBIN 9.1 g/dl (14.0-17.9); LYMPHOCYTES # (AUTO) 1.3 X10'3 (1.1-4.8); LYMPHOCYTES % (AUTO) 23.1 % (21-51); MEAN CORPUSCULAR HEMOGLOBIN 24.4 PG (27.0-31.0); MEAN CORPUSCULAR HGB CONC 31.4 g/dL (33.0-36.5); MEAN CORPUSCULAR VOLUME 77.6 FL (78-98); MEAN PLATELET VOLUME 7.8 FL (7.4-10.4); MONOCYTES # (AUTO) 0.3 X10'3 (0-0.9); NEUTROPHILS # (AUTO) 3.7 X10'3 (1.8-7.7); NEUTROPHILS % (AUTO) 65.5 % (42-75); PLATELET COUNT 216 X10'3 (140-440); RED BLOOD COUNT 3.73 X10'6 (4.70-6.10); WHITE BLOOD COUNT 5.7 X10'3 (4.5-11.0)
--- NOTE | 2019-09-17 22:36 | NUR ---
Called Elizabeth patient upon patient asking "Where is Elizabeth?" immediately after code blue. Requested warehouse worker 2nd shift and devulcanizer charger if okay to have family visit. Got permission as long as family wears mask during the duration of time and arrives through the ER and is screened. Notified Elizabeth of code and ROSC. Will continue to monitor patient.
[2019-09-17 22:47] LABS: ALBUMIN 3.2 G/DL (3.4-5.0); ANION GAP 12 (8-16); BLOOD UREA NITROGEN 13 MG/DL (7-18); BUN/CREATININE RATIO 9.8 (5.4-32.0); CALCIUM 8.6 MG/DL (8.5-10.1); CHLORIDE 106 MMOL/L (99-107); CREATININE 1.32 MG/DL (0.60-1.10); GLUCOSE 116 MG/DL (70-104); MAGNESIUM 1.7 MG/DL (1.5-2.4); POTASSIUM 3.8 MMOL/L (3.5-5.1); SODIUM 142 MMOL/L (135-145); TOTAL CARBON DIOXIDE 24.2 MMOL/L (24-32); TROPONIN I 0.43 NG/ML (0.0-0.05); eGFR 52 ML/MIN
[2019-09-17] MEDS: DOBUTamine-DoBUTrex 500mg/D5W 250 ML IV SCH (22:58)
--- NOTE | 2019-09-17 23:07 | NUR ---
Family arrived and are visiting and talking with patient. Patient oriented.
[2019-09-17] MEDS ORDERED: polyvinyl alcohol ophthalmic drops 15ml bottle EACHEYE PRN (23:35)
[2019-09-18] VITALS (11 sets, daily range): BP systolic 103–142; BP diastolic 46–57
[2019-09-18] MEDS: HYDROcodone/acetaminophen 10/325mg tab PO PRN ×3 (00:23→12:47)
[2019-09-18 05:53] LABS: BASOPHILS % (AUTO) 0.3 % (0-1); EOSINOPHILS # (AUTO) 0.1 X10'3 (0-0.9); HEMATOCRIT 27.6 % (42.0-52.0); HEMOGLOBIN 8.7 g/dl (14.0-17.9); LYMPHOCYTES # (AUTO) 0.5 X10'3 (1.1-4.8); LYMPHOCYTES % (AUTO) 6.3 % (21-51); MEAN CORPUSCULAR HEMOGLOBIN 24.4 PG (27.0-31.0); MEAN CORPUSCULAR HGB CONC 31.7 g/dL (33.0-36.5); MEAN PLATELET VOLUME 7.8 FL (7.4-10.4); MONOCYTES # (AUTO) 0.6 X10'3 (0-0.9); MONOCYTES % (AUTO) 7.5 % (2-12); NEUTROPHILS # (AUTO) 6.3 X10'3 (1.8-7.7); NEUTROPHILS % (AUTO) 84.9 % (42-75); PLATELET COUNT 198 X10'3 (140-440); RED BLOOD COUNT 3.58 X10'6 (4.70-6.10); RED CELL DISTRIBUTION WIDTH 17.2 % (11.5-14.5); WHITE BLOOD COUNT 7.4 X10'3 (4.5-11.0)
[2019-09-18 05:58] LABS: ALBUMIN 3.1 G/DL (3.4-5.0); ANION GAP 7 (8-16); BLOOD UREA NITROGEN 15 MG/DL (7-18); BUN/CREATININE RATIO 10.8 (5.4-32.0); CALCIUM 8.8 MG/DL (8.5-10.1); CHLORIDE 107 MMOL/L (99-107); CREATININE 1.39 MG/DL (0.60-1.10); GLUCOSE 91 MG/DL (70-104); SODIUM 140 MMOL/L (135-145); TOTAL CARBON DIOXIDE 25.8 MMOL/L (24-32); eGFR 49 ML/MIN
--- NOTE | 2019-09-18 06:34 | NUR ---
Problems reprioritized. Patient report given, questions answered & plan of care reviewed with Julia BERUMEN.
--- NOTE | 2019-09-18 06:44 | NUR ---
Patient in room PCU 3016. I have received report from Jabier BERUMEN and had the opportunity to ask questions and assume patient care.
--- NOTE | 2019-09-18 06:51 | NUR ---
Patient in room PCU 3016. I have received report from Jabier BERUMEN and had the opportunity to ask questions and assume patient care. Patient awake at this time, dobutamine running at 2.5, patient offers no complaints, will continue to monitor.
[2019-09-18] MEDS: aspirin 81mg tablet.DR PO SCH (07:26)
[2019-09-18] MEDS: flecainide 50mg tablet PO SCH ×3 (07:26→21:07)
[2019-09-18] MEDS: amLODIPine 5mg tablet PO SCH (07:26)
[2019-09-18] MEDS: apixaban 5mg tablet PO SCH ×2 (07:26→21:08)
[2019-09-18] MEDS: normal saline 1000ml 1,000 ML IV SCH (09:30)
--- NOTE | 2019-09-18 09:46 | NUR ---
2426F, [facility]. Dr. Strauss would like the patient to be walked if possible to evaluate for discharge. Thank you
--- NOTE | 2019-09-18 09:52 | NUR ---
New order from Dr. Strauss stopped Norvas Tablet, Medication was dcd. Will continue to monitor.
--- NOTE | 2019-09-18 11:09 | NUR ---
PAGER ID: [phone] MESSAGE: [phone], Juanpablo. Pt's BP dropped to 74/45 and was light headed after working with PT and walking 30 ft and sitting in chair. Pt also had ST changes at this time, protocol EKG being obtained. Pt is back to bed. Julia [phone]
--- NOTE | 2019-09-18 12:37 | NUR ---
Initial: Pt admit w/ NSTEMI, mild dementia, acute renal failure per MD; currently AOx2. Dietary TC: family reports pt drinks ensures/boosts at home and [facility] be bringing [facility] MD verification in EMR okay to have ONS brought from home given 100% avg heart healthy meals meeting needs this admit. LBM 09/17. No nutrition concerns at this time. Will continue to monitor. Rec: 1. continue heart healthy diet 2. ensure/boost from home per family 3. routine bowel care 4. weekly scaled wts Addendum: 09/18/19 at [address] Amended: Links added.
[2019-09-18] MEDS ORDERED: ketorolac tromethamine 15mg/ml inj. IV ONE (12:55)
--- NOTE | 2019-09-18 16:01 | NUR ---
Patient's pacemaker was interrogated and a setting was changed, Dr. Dobbins was notified, and has visited the patient at bedside today, new orders obtained, will continue to monitor.
--- NOTE | 2019-09-18 17:13 | NUR ---
Patient has not voided during this shift. A bladder scan was done with 141ml residual. Patient denies any pain when palpating. Patient did not drink much water/fluids. Will continue to monitor,
--- NOTE | 2019-09-18 17:47 | NUR ---
During this shift patient blood pressure reflected to low levels 70/50, with interventions of tim socks, head down in bed and fluids his fluids went up 105/56. O
--- NOTE | 2019-09-18 18:11 | NUR ---
PAGER ID: [phone] MESSAGE: [id number], Juanpablo. Pt is having low BP again, 98/32 MAP (50) still on 2.5mcg of dobutamine, would you like to give a bolus? Julia [phone]
--- NOTE | 2019-09-18 18:21 | NUR ---
Spoke with Dr. Strauss regarding the patient's decreased blood pressure, new orders obtained to stop NS and increase dobutamine. Will continue to monitor.
--- NOTE | 2019-09-18 18:30 | NUR ---
Patient in room PCU 3016. I have received report from ATA Dumont and had the opportunity to ask questions and assume patient care.
--- NOTE | 2019-09-18 18:40 | NUR ---
Problems reprioritized. Patient report given, questions answered & plan of care reviewed with Lenka BERUMEN. Patient stable at transfer of care.
[2019-09-18] MEDS: LIDOcaine 5% patch TP SCH (21:00)
[2019-09-18] MEDS: atorvastatin 20mg tablet PO SCH (21:07)
--- NOTE | 2019-09-18 22:34 | NUR ---
sent to [facility] PAGER ID: [phone] MESSAGE: [id number] Toño Geronimo: No labs ordered, would you like to order some? ThanksAnabelle [phone] Addendum: 09/18/19 at 2235 by Lenka Awan RN PAGER ID: [phone] MESSAGE: [phone] Austen Geronimo: I meant AUSTEN NOT TOÑO Thank you, [phone] Lenka
[2019-09-19] VITALS (8 sets, daily range): BP systolic 108–126; BP diastolic 45–91
--- NOTE | 2019-09-19 00:01 | NUR ---
Patient cannot remember where he likes his Lidocaine patch placed, so, I did not place it on him.
--- NOTE | 2019-09-19 02:05 | NUR ---
Patient had 50 mL of urine out. He had post void residual of 134 mL in bladder. Addendum: 09/19/19 at 0205 by Lenka Awan RN Amended: Links added.
[2019-09-19 03:28] LABS: BASOPHILS # (AUTO) 0.1 X10'3 (0-0.2); BASOPHILS % (AUTO) 0.7 % (0-1); EOSINOPHILS # (AUTO) 0.4 X10'3 (0-0.9); EOSINOPHILS % (AUTO) 5.4 % (0-6); HEMATOCRIT 26.7 % (42.0-52.0); HEMOGLOBIN 8.4 g/dl (14.0-17.9); LYMPHOCYTES # (AUTO) 0.5 X10'3 (1.1-4.8); LYMPHOCYTES % (AUTO) 6.7 % (21-51); MEAN CORPUSCULAR HEMOGLOBIN 24.2 PG (27.0-31.0); MEAN CORPUSCULAR HGB CONC 31.3 g/dL (33.0-36.5); MEAN CORPUSCULAR VOLUME 77.2 FL (78-98); MEAN PLATELET VOLUME 7.3 FL (7.4-10.4); MONOCYTES # (AUTO) 0.8 X10'3 (0-0.9); MONOCYTES % (AUTO) 10.2 % (2-12); NEUTROPHILS # (AUTO) 5.7 X10'3 (1.8-7.7); PLATELET COUNT 165 X10'3 (140-440); RED BLOOD COUNT 3.45 X10'6 (4.70-6.10); RED CELL DISTRIBUTION WIDTH 16.9 % (11.5-14.5); WHITE BLOOD COUNT 7.5 X10'3 (4.5-11.0)
[2019-09-19 03:36] LABS: ALBUMIN 2.9 G/DL (3.4-5.0); ANION GAP 5 (8-16); BLOOD UREA NITROGEN 23 MG/DL (7-18); BUN/CREATININE RATIO 13.8 (5.4-32.0); CALCIUM 8.4 MG/DL (8.5-10.1); CHLORIDE 106 MMOL/L (99-107); CREATININE 1.67 MG/DL (0.60-1.10); GLUCOSE 153 MG/DL (70-104); POTASSIUM 4.1 MMOL/L (3.5-5.1); SODIUM 138 MMOL/L (135-145); TOTAL CARBON DIOXIDE 27.5 MMOL/L (24-32); eGFR 40 ML/MIN
--- NOTE | 2019-09-19 05:32 | NUR ---
sent to [facility] PAGER ID: [phone] MESSAGE: [phone] Austen Geronimo: Patient is very agitated, will not let us touch him, is trying to swing at us. Can we initiate restraints? Thanks, Lenka [phone]
--- NOTE | 2019-09-19 05:35 | NUR ---
sent to [facility] PAGER ID: [phone] MESSAGE: [id number] Austen Geronimo: Pt also has only had 240 mL of urine out tonight. About 20 mL/HR Bladder scanner showed 134 w/ output of 50 ThanksLenka [phone] (152 character message out of a maximum of 240)
--- NOTE | 2019-09-19 06:02 | NUR ---
Patient very agitated and confused this am since 0500. He is trying to leave. Dr. Paz has been paged to see if we can apply restraints due to patient threatening to punch us. He as swung at [facility] a few times. He refuses to let us touch him.
--- NOTE | 2019-09-19 06:25 | NUR ---
Problems reprioritized. Patient report given, questions answered & plan of care reviewed with ATA Knapp.
--- NOTE | 2019-09-19 06:55 | NUR ---
Came in for bedside report and patient was very agitated and confused, pulled off all of his leads and was trying the wear the wries apart. Attempted to reorient patient, he wouldn't let us put the leads on or touch him. He threatened to hit the nurses aide and RN. Restraints applied for safety of patient and staff.
--- NOTE | 2019-09-19 07:10 | NUR ---
Patient in room PCU 3016. I have received report from Lenka BERUMEN and had the opportunity to ask questions and assume patient care.
[2019-09-19] MEDS: apixaban 5mg tablet PO SCH ×2 (08:00→20:07)
[2019-09-19] MEDS: aspirin 81mg tablet.DR PO SCH (08:00)
[2019-09-19] MEDS: flecainide 50mg tablet PO SCH ×3 (08:00→20:07)
[2019-09-19] MEDS: HYDROcodone/acetaminophen 10/325mg tab PO PRN ×2 (10:38→17:26)
[2019-09-19] MEDS: DOBUTamine-DoBUTrex 500mg/D5W 250 ML IV SCH (15:25)
--- NOTE | 2019-09-19 18:29 | NUR ---
Page sent to Dr. Strauss: PAGER ID: [phone] MESSAGE: [id number] Austen Geronimo: Patient voided 330mL of urine today, had 400mL to drink total. Would you like any intervention done? Thanks, Aria [phone]
--- NOTE | 2019-09-19 18:30 | NUR ---
Patient in room PCU 3023. I have received report from ATA Knapp and had the opportunity to ask questions and assume patient care.
[2019-09-19] MEDS: atorvastatin 20mg tablet PO SCH (20:07)
[2019-09-19] MEDS: LIDOcaine 5% patch TP SCH (21:00)
[2019-09-20] VITALS (11 sets, daily range): BP systolic 98–169; BP diastolic 60–104
--- NOTE | 2019-09-20 02:51 | NUR ---
Sent to [facility] PAGER ID: [phone] MESSAGE: [id number] Austen Geronimo" Hi , forgot to page earlier, no labs are ordered. Would you like to order labs? Thanks, Lenka [phone]
[2019-09-20] MEDS: acetaminophen 325mg tablet PO PRN ×2 (04:06→14:19)
[2019-09-20] MEDS: DOBUTamine-DoBUTrex 500mg/D5W 250 ML IV SCH ×2 (04:11→22:42)
--- NOTE | 2019-09-20 06:31 | NUR ---
Problems reprioritized. Patient report given, questions answered & plan of care reviewed with ATA Mcbride.
--- NOTE | 2019-09-20 06:33 | NUR ---
Patient in room PCU 3023. I have received report from Lenka BERUMEN and had the opportunity to ask questions and assume patient care.
--- NOTE | 2019-09-20 06:35 | NUR ---
Patient in room PCU 3023. I have received report from Lenka BERUMEN and had the opportunity to ask questions and assume patient care.
[2019-09-20] MEDS: apixaban 5mg tablet PO SCH ×2 (08:00→20:04)
[2019-09-20] MEDS: flecainide 50mg tablet PO SCH ×3 (08:00→20:04)
[2019-09-20] MEDS: aspirin 81mg tablet.DR PO SCH (08:00)
--- NOTE | 2019-09-20 08:29 | NUR ---
Patient refused AM medications, educated patient on the importance of taking his Eliquis to prevent clots and his flecainide to prevent arrhythmias, patient stated " I don't want to hear it, Im not going to take them". Will continue to monitor the patient closely.y
--- NOTE | 2019-09-20 09:24 | NUR ---
MD at bedside, is aware that patient refused AM medications, educated patient again on importance of taking medications to prevent arrhythmias and blood clots, patient stated, "I don't give a shit". Discussed plan of care with MD, called patients to update her on the patients condition and that he is refusing medications. The , Elizabeth, stated that if home health was set up for the patient then she would take him home with the dobutamine drip. Sent case management a page concerning this patient, will continue to closely monitor.
--- NOTE | 2019-09-20 09:48 | NUR ---
Sent a page to Dr Strauss per the patients wifes request PAGER ID: [phone] MESSAGE: Rae BERUMNE [phone] [id number] G Juanpablo, the patients , Elizabeth, would like to talk to you specifically about the patient, her number is [phone], thanks
--- NOTE | 2019-09-20 18:11 | NUR ---
Patient in room PCU 3023. I have received report from ATA Mcbride and had the opportunity to ask questions and assume patient care.
--- NOTE | 2019-09-20 18:32 | NUR ---
Problems reprioritized. Patient report given, questions answered & plan of care reviewed with Lenka BERUMEN.
--- NOTE | 2019-09-20 20:01 | NUR ---
[id number] no [facility]. Would you like to order some? He has a picc line to draw from. Thank you, Lenka [phone]
[2019-09-20] MEDS: atorvastatin 20mg tablet PO SCH (20:04)
--- NOTE | 2019-09-20 20:47 | NUR ---
Page Sent to Dr. Paz PAGER ID: [phone] MESSAGE: [phone] Austen Geronimo: pt is agitated, trying to leave, trying to take hospital equipment off. He was restrained yesterday and day before for danger to self and others. Can we renew restraints? No labs ordered day 2 Lenka [phone]
[2019-09-20] MEDS: LIDOcaine 5% patch TP SCH (21:00)
[2019-09-21] VITALS (13 sets, daily range): BP systolic 94–135; BP diastolic 39–94
[2019-09-21] MEDS: LORazepam 2 mg/ml vial IV PRN ×2 (02:17→12:15)
--- NOTE | 2019-09-21 05:59 | NUR ---
Problems reprioritized. Patient report given, questions answered & plan of care reviewed with ATA Snyder.
--- NOTE | 2019-09-21 06:12 | NUR ---
Patient in room PCU 3025K. I have received report from Lenka BERUMEN and had the opportunity to ask questions and assume patient care. Patient laying in bed, confused, agitated, moving legs around, in 3 point restraints, dobutamine infusing at ordered rate.
--- NOTE | 2019-09-21 06:58 | NUR ---
Patient in room PCU 3023. I have received report from Lillian BERUMEN and had the opportunity to ask questions and assume patient care.
[2019-09-21] MEDS: aspirin 81mg tablet.DR PO SCH (08:00)
[2019-09-21] MEDS: apixaban 5mg tablet PO SCH ×2 (08:00→19:41)
[2019-09-21] MEDS: flecainide 50mg tablet PO SCH ×3 (08:00→19:41)
--- NOTE | 2019-09-21 08:43 | NUR ---
PAGER ID: [phone] MESSAGE: Lillian Tom amara [phone]. RE Cosme Geronimo [id number]. Pt does not have any labs ordered, no labs since 09/18. Has PICC line. Also blood in stool. Do you want any labs ordered? Thanks!
--- NOTE | 2019-09-21 10:00 | NUR ---
Dr. Strauss notified in person that patient had a 5 beat run of v tach at 0909, no changes in orders. On bedside monitor, will continue to observe for changes.
[2019-09-21 10:01] LABS: BASOPHILS # (AUTO) 0.1 X10'3 (0-0.2); BASOPHILS % (AUTO) 1.9 % (0-1); EOSINOPHILS # (AUTO) 0.2 X10'3 (0-0.9); EOSINOPHILS % (AUTO) 2.2 % (0-6); HEMATOCRIT 26.1 % (42.0-52.0); HEMOGLOBIN 8.2 g/dl (14.0-17.9); LYMPHOCYTES # (AUTO) 0.4 X10'3 (1.1-4.8); LYMPHOCYTES % (AUTO) 5.1 % (21-51); MEAN CORPUSCULAR HEMOGLOBIN 23.8 PG (27.0-31.0); MEAN CORPUSCULAR HGB CONC 31.3 g/dL (33.0-36.5); MEAN CORPUSCULAR VOLUME 76.2 FL (78-98); MONOCYTES # (AUTO) 0.8 X10'3 (0-0.9); MONOCYTES % (AUTO) 11.2 % (2-12); NEUTROPHILS # (AUTO) 5.6 X10'3 (1.8-7.7); NEUTROPHILS % (AUTO) 79.6 % (42-75); PLATELET COUNT 212 X10'3 (140-440); RED BLOOD COUNT 3.42 X10'6 (4.70-6.10); RED CELL DISTRIBUTION WIDTH 17.1 % (11.5-14.5); WHITE BLOOD COUNT 7.1 X10'3 (4.5-11.0)
[2019-09-21 10:14] LABS: ALANINE AMINOTRANSFERASE 27 U/L (12-78); ALBUMIN 2.9 G/DL (3.4-5.0); ALBUMIN/GLOBULIN RATIO 1.1 (1.1-1.5); ALKALINE PHOSPHATASE 82 IU/L (46-116); ANION GAP 8 (8-16); ASPARTATE AMINO TRANSFERASE 47 U/L (10-37); BILIRUBIN,TOTAL 1.8 MG/DL (0.1-1.0); BLOOD UREA NITROGEN 22 MG/DL (7-18); BUN/CREATININE RATIO 15.3 (5.4-32.0); CALCIUM 8.5 MG/DL (8.5-10.1); CHLORIDE 104 MMOL/L (99-107); CREATININE 1.44 MG/DL (0.60-1.10); GLUCOSE 89 MG/DL (70-104); SODIUM 137 MMOL/L (135-145); TOTAL CARBON DIOXIDE 25.4 MMOL/L (24-32); TOTAL PROTEIN 5.5 G/DL (6.4-8.2); eGFR 47 ML/MIN
--- NOTE | 2019-09-21 12:29 | NUR ---
PAGER ID: [phone] MESSAGE: Lillian maloney [phone]. RE Cosme Geronimo [id number]. Pt PICC line occluded in one port, can I get order for cath helio? Thanks!
[2019-09-21] MEDS ORDERED: tPA-cathflo 2 MG/2 ml IV flush IVF ONE (14:45)
[2019-09-21 14:50] LABS: CLARITY,URINE SLIGHTLY CLOUDY (Clear); COLOR,URINE YELLOW (Yellow); GLUCOSE, URINE NEGATIVE (Neg); KETONES,URINE 15 mg/dl (Neg); LEUKOCYTE ESTERASE ,URINE NEGATIVE (Neg); NITRITES, URINE NEGATIVE (Neg); OCCULT BLOOD,URINE TRACE-INTACT (Neg); PROTEIN,URINE TRACE mg/dl (Neg)
[2019-09-21 14:55] LABS: UA COLLECTION TYPE STRAIGHT CATH
[2019-09-21 14:56] LABS: HYALINE CASTS 0-3 /LPF (NEGATIVE); MUCUS STRANDS FEW /LPF (Neg); SQUAMOUS EPITHELIAL CELL,UR FEW /LPF (FEW)
[2019-09-21 14:57] LABS: BACTERIA,URINE FEW /HPF (Neg); RBC,URINE 0-2 /HPF (0-2)
[2019-09-21] MEDS: DOBUTamine-DoBUTrex 500mg/D5W 250 ML IV SCH (16:36)
--- NOTE | 2019-09-21 18:00 | NUR ---
Patient in room PCU 3023. I have received report from Lillian BERUMEN and had the opportunity to ask questions and assume patient care.
--- NOTE | 2019-09-21 18:00 | NUR ---
Student Medication Administration: For this medication-pass time frame, all medication were reviewed, dispensed, administered and documented per hospital policy by Makeda. Student documentation: I have reviewed and agree with all interventions, assessments performed and documented by Makeda.
--- NOTE | 2019-09-21 18:40 | NUR ---
Problems reprioritized. Patient report given, questions answered & plan of care reviewed with Cee BERUMEN.
[2019-09-21] MEDS: atorvastatin 20mg tablet PO SCH (19:41)
[2019-09-21] MEDS: LIDOcaine 5% patch TP SCH (21:00)
[2019-09-22] VITALS (14 sets, daily range): BP systolic 101–133; BP diastolic 53–76
--- NOTE | 2019-09-22 03:58 | NUR ---
NT suction Patient was suctioned twice this shift, patient has a weak cough and unable to clear throat. SpO2 between 88-92%. Will continue to monitor. Addendum: 09/22/19 at 0404 by Cee Virk RN WRONG PATIENT, DISMISS NOTE. Cee BERUMEN
--- NOTE | 2019-09-22 05:00 | NUR ---
END NOC NOTE Patient slept all night, was able to reorientate patient when needed. Patient still pulls on lines, was able to discontinue right lower extremity restraint. Will continue to monitor.
--- NOTE | 2019-09-22 06:20 | NUR ---
Patient in room PCU 3023. I have received report from Cee BERUMEN and had the opportunity to ask questions and assume patient care.
--- NOTE | 2019-09-22 06:31 | NUR ---
Problems reprioritized. Patient report given, questions answered & plan of care reviewed with Carl BERUMEN.
[2019-09-22] MEDS: lactose-reduced food (Ensure High Protein) 237ml bottle PO SCH ×3 (08:00→18:00)
[2019-09-22] MEDS: aspirin 81mg tablet.DR PO SCH (08:21)
[2019-09-22] MEDS: apixaban 5mg tablet PO SCH ×2 (08:21→20:00)
[2019-09-22] MEDS: flecainide 50mg tablet PO SCH ×3 (08:21→19:07)
[2019-09-22 10:14] LABS: MEAN CORPUSCULAR HEMOGLOBIN 24.6 PG (27.0-31.0); MEAN CORPUSCULAR HGB CONC 32.2 g/dL (33.0-36.5); MEAN CORPUSCULAR VOLUME 76.4 FL (78-98); MEAN PLATELET VOLUME 7.2 FL (7.4-10.4); PLATELET COUNT 234 X10'3 (140-440); RED BLOOD COUNT 3.67 X10'6 (4.70-6.10); RED CELL DISTRIBUTION WIDTH 17.6 % (11.5-14.5); WHITE BLOOD COUNT 6.1 X10'3 (4.5-11.0)
--- NOTE | 2019-09-22 13:01 | NUR ---
Pt ambulated 600 ft on RA with no assistive devices. Pt tolerated well. Minor SOB. Addendum: 09/22/19 at 1302 by Carl Parker RN Wrong Pt
[2019-09-22] MEDS: DOBUTamine-DoBUTrex 500mg/D5W 250 ML IV SCH (13:07)
--- NOTE | 2019-09-22 18:30 | NUR ---
Problems reprioritized. Patient report given, questions answered & plan of care reviewed with Cee BERUMEN.
--- NOTE | 2019-09-22 18:32 | NUR ---
Patient in room PCU 3023. I have received report from Carl BERUMEN and had the opportunity to ask questions and assume patient care.
[2019-09-22] MEDS: atorvastatin 20mg tablet PO SCH (19:05)
[2019-09-22] MEDS: LIDOcaine 5% patch TP SCH (19:10)
--- NOTE | 2019-09-22 22:00 | NUR ---
Patient discharged Patient is stable and has taken all belongings with him home for discharge. and daughter provided transport. Patient was also taught how to use in home dobutamine drip pump by tax representative. All discharge paperwork and teaching has been given.
== END 2019-09-22 21:40 | disposition home IV services (08) | DRG 281 ==
LOC: ER 12:57 → ED HOLD 17:19 → PCU 3S 22:28
PROVIDERS: ADMIT Internal Medicine; ATTEND Internal Medicine
PROC: 4B02XSZ Measurement of Cardiac Pacemaker, External Approach (ICD-10-PCS; 2019-09-13)
PROC: B32T1ZZ Computerized Tomography (CT Scan) of Left Pulmonary Artery using Low Osmolar Contrast (ICD-10-PCS; 2019-09-13)
PROC: B3201ZZ Computerized Tomography (CT Scan) of Thoracic Aorta using Low Osmolar Contrast (ICD-10-PCS; 2019-09-13)
PROC: B32S1ZZ Computerized Tomography (CT Scan) of Right Pulmonary Artery using Low Osmolar Contrast (ICD-10-PCS; 2019-09-13)
PROC: 30233N1 Transfusion of Nonautologous Red Blood Cells into Peripheral Vein, Percutaneous Approach (ICD-10-PCS; 2019-09-14)
PROC: 02HV33Z Insertion of Infusion Device into Superior Vena Cava, Percutaneous Approach (ICD-10-PCS; 2019-09-15)
PROC: B548ZZA Ultrasonography of Superior Vena Cava, Guidance (ICD-10-PCS; 2019-09-15)
PROC: 4A023N8 Measurement of Cardiac Sampling and Pressure, Bilateral, Percutaneous Approach (ICD-10-PCS; principal; 2019-09-16)
PROC: B2111ZZ Fluoroscopy of Multiple Coronary Arteries using Low Osmolar Contrast (ICD-10-PCS; 2019-09-16)
PROC: 3E073KZ Introduction of Other Diagnostic Substance into Coronary Artery, Percutaneous Approach (ICD-10-PCS; 2019-09-16)
PROC: B2181ZZ Fluoroscopy of Left Internal Mammary Bypass Graft using Low Osmolar Contrast (ICD-10-PCS; 2019-09-16)
PROC: B2131ZZ Fluoroscopy of Multiple Coronary Artery Bypass Grafts using Low Osmolar Contrast (ICD-10-PCS; 2019-09-16)
DX: I21.4 Non-ST elevation (NSTEMI) myocardial infarction (principal); N17.9 Acute kidney failure, unspecified; F05 Delirium due to known physiological condition; I42.0 Dilated cardiomyopathy; N18.3 Chronic kidney disease, stage 3 (moderate); I48.0 Paroxysmal atrial fibrillation; D50.9 Iron deficiency anemia, unspecified; I49.5 Sick sinus syndrome; F03.90 Unspecified dementia, unspecified severity, without behavioral disturbance, psychotic disturbance, mood disturbance, and anxiety; E78.5 Hyperlipidemia, unspecified; W18.39XA Other fall on same level, initial encounter; R55 Syncope and collapse; K64.4 Residual hemorrhoidal skin tags; E87.6 Hypokalemia; I25.10 Atherosclerotic heart disease of native coronary artery without angina pectoris; Z78.1 Physical restraint status; Z86.73 Personal history of transient ischemic attack (TIA), and cerebral infarction without residual deficits; Z95.0 Presence of cardiac pacemaker; Z95.1 Presence of aortocoronary bypass graft; Y93.89 Activity, other specified; Y92.098 Other place in other non-institutional residence as the place of occurrence of the external cause; Y99.8 Other external cause status; Z88.8 Allergy status to other drugs, medicaments and biological substances; Z79.899 Other long term (current) drug therapy
CPT/HCPCS: 36415; 36430; 36573; 70450; 71045; 71275; 73564; 76937; 80048; 80053; 80061; 81001; 81003; 82272; 83605; 83735; 83880; 84484; 85025; 85027; 85610; 85730; 86885; 86900; 86901; 86920; 87081; 87088; 92508; 92616; 93005; 93308; 93457; 96374; 97116; 97161; 97530; 99152; 99153; 99291; A4620; A6258; C1760; C1769; C1894; G0378; J1200; J1250; J1644; J1885; J1940; J2001; J2060; J2250; J2997; J3010; J7030; J7999; P9016; Q9967

== ENCOUNTER 2019-10-06 07:22 | Day surgery (SDC) | payer MEDICARE, OTHER ==
[~2019-10-06] VITALS: Ht 177.8 cm; Wt 77.6 kg
[~2019-10-06 07:22] MED LIST changes: +AMLO5TAB16 PO; -APIX5TAB3 PO; -CEPH500C5 PO; +FLEC100T2 PO; -FLEC150T PO; +FURO20TA4 PO; +POTA-82 PO; +PSYL575P22 PO
[2019-10-06] MEDS: MIDAZolam 1mg/ml 10ml vial IV ONE ×2 (07:45→08:43)
[2019-10-06] MEDS: fentaNYL/PF 50MCG/1 ML 2ML syringe IV ONE ×2 (07:45→08:44)
[2019-10-06] MEDS ORDERED: normal saline 1000ml 1,000 ML IV SCH (07:45)
[2019-10-06 07:47] VITALS: BP 101/51
[2019-10-06] MEDS ORDERED: LOSA25TA96 PO (08:23)
[2019-10-06] MEDS ORDERED: DOBUTAMINE IV (08:23)
[2019-10-06] MEDS ORDERED: APIX5TAB3 PO (08:23)
[2019-10-06 08:24] LABS: BASOPHILS # (AUTO) 0.1 X10'3 (0-0.2); BASOPHILS % (AUTO) 1.8 % (0-1); EOSINOPHILS # (AUTO) 0.4 X10'3 (0-0.9); EOSINOPHILS % (AUTO) 5.6 % (0-6); HEMATOCRIT 28.3 % (42.0-52.0); HEMOGLOBIN 8.9 g/dl (14.0-17.9); LYMPHOCYTES # (AUTO) 0.5 X10'3 (1.1-4.8); LYMPHOCYTES % (AUTO) 7.6 % (21-51); MEAN CORPUSCULAR HEMOGLOBIN 23.9 PG (27.0-31.0); MEAN CORPUSCULAR HGB CONC 31.4 g/dL (33.0-36.5); MEAN CORPUSCULAR VOLUME 75.9 FL (78-98); MEAN PLATELET VOLUME 7.2 FL (7.4-10.4); MONOCYTES # (AUTO) 0.5 X10'3 (0-0.9); NEUTROPHILS # (AUTO) 4.9 X10'3 (1.8-7.7); PLATELET COUNT 192 X10'3 (140-440); RED BLOOD COUNT 3.72 X10'6 (4.70-6.10); RED CELL DISTRIBUTION WIDTH 18.2 % (11.5-14.5); WHITE BLOOD COUNT 6.3 X10'3 (4.5-11.0)
[2019-10-06 08:34] LABS: ALBUMIN 3.2 G/DL (3.4-5.0); ANION GAP 8 (8-16); BLOOD UREA NITROGEN 36 MG/DL (7-18); BUN/CREATININE RATIO 25.5 (5.4-32.0); CALCIUM 8.6 MG/DL (8.5-10.1); CHLORIDE 107 MMOL/L (99-107); CREATININE 1.41 MG/DL (0.60-1.10); GLUCOSE 91 MG/DL (70-104); POTASSIUM 4.2 MMOL/L (3.5-5.1); SODIUM 142 MMOL/L (135-145); TOTAL CARBON DIOXIDE 27.3 MMOL/L (24-32); eGFR 48 ML/MIN
[2019-10-06] MEDS ORDERED: amiodarone/D5 360MG/200ML BAG 200 ML IV SCH (10:15)
--- NOTE | 2019-10-06 10:15 | NUR ---
Spoke with Pharmacy, clarified medication order for Amiodarone per Carmelita Acosta who spoke with Shilpi Fernandez [facility] neno mazariegos.
--- NOTE | 2019-10-06 12:31 | NUR ---
Versed not administered D/T procedure cancelled -wasted in omni call
== END 2019-10-06 14:00 | disposition home or self-care (01) ==
LOC: SSTAY O 07:22
PROVIDERS: ATTEND Internal Medicine Cardiovascular Disease
DX: I48.91 Unspecified atrial fibrillation (principal); Z53.8 Procedure and treatment not carried out for other reasons; Z79.899 Other long term (current) drug therapy
CPT/HCPCS: 36415; 76937; 80048; 83735; 85025; 85610; J7030; 93005; J2250; J3010

== ENCOUNTER 2019-12-15 07:37 | Day surgery (SDC) | payer OTHER ==
[~2019-12-15] VITALS: Ht 177.8 cm; Wt 74.6 kg
[2019-12-15] VITALS (15 sets, daily range): BP systolic 113–156; BP diastolic 52–92
[~2019-12-15 07:37] MED LIST changes: -AMLO5TAB16 PO; +APIX5TAB3 PO; +DOBUTAMINE IV; +LOSA25TA96 PO
[2019-12-15] MEDS ORDERED: MIDAZolam 1mg/ml 10ml vial IV ONE (08:05)
[2019-12-15] MEDS ORDERED: fentaNYL/PF 50MCG/1 ML 2ML syringe IV ONE (08:05)
[2019-12-15] MEDS ORDERED: normal saline 1000ml 1,000 ML IV SCH (08:05)
[2019-12-15] MEDS ORDERED: DOBU1000 IV (08:30)
[2019-12-15 09:00] LABS: BASOPHILS # (AUTO) 0.1 X10'3 (0-0.2); BASOPHILS % (AUTO) 1.1 % (0-1); EOSINOPHILS # (AUTO) 0.2 X10'3 (0-0.9); EOSINOPHILS % (AUTO) 3.1 % (0-6); HEMATOCRIT 44.3 % (42.0-52.0); HEMOGLOBIN 14.4 g/dl (14.0-17.9); LYMPHOCYTES # (AUTO) 0.6 X10'3 (1.1-4.8); LYMPHOCYTES % (AUTO) 11.5 % (21-51); MEAN CORPUSCULAR HGB CONC 32.5 g/dL (33.0-36.5); MEAN CORPUSCULAR VOLUME 83.1 FL (78-98); MONOCYTES # (AUTO) 0.5 X10'3 (0-0.9); MONOCYTES % (AUTO) 8.9 % (2-12); NEUTROPHILS # (AUTO) 4.2 X10'3 (1.8-7.7); NEUTROPHILS % (AUTO) 75.4 % (42-75); PLATELET COUNT 187 X10'3 (140-440); RED BLOOD COUNT 5.33 X10'6 (4.70-6.10); RED CELL DISTRIBUTION WIDTH 21.5 % (11.5-14.5); WHITE BLOOD COUNT 5.6 X10'3 (4.5-11.0)
[2019-12-15 09:38] LABS: ALANINE AMINOTRANSFERASE 29 U/L (12-78); ALBUMIN 4.3 G/DL (3.4-5.0); ALBUMIN/GLOBULIN RATIO 1.1 (1.1-1.5); ALKALINE PHOSPHATASE 106 IU/L (46-116); ANION GAP 7 (8-16); ASPARTATE AMINO TRANSFERASE 21 U/L (10-37); BILIRUBIN,TOTAL 0.7 MG/DL (0.1-1.0); BLOOD UREA NITROGEN 23 MG/DL (7-18); BUN/CREATININE RATIO 16.8 (5.4-32.0); CALCIUM 9.5 MG/DL (8.5-10.1); CHLORIDE 105 MMOL/L (99-107); CREATININE 1.37 MG/DL (0.60-1.10); GLUCOSE 91 MG/DL (70-104); MAGNESIUM 2.2 MG/DL (1.5-2.4); SODIUM 141 MMOL/L (135-145); TOTAL PROTEIN 8.1 G/DL (6.4-8.2); eGFR 50 ML/MIN
[2019-12-15 10:01] LABS: PLATELET ESTIMATE NORMAL
[2019-12-15 10:02] LABS: ACANTHOCYTES 1+; ANISOCYTOSIS 3+; ELLIPTOCYTES 1+
== END 2019-12-15 10:50 | disposition home or self-care (01) ==
LOC: SSTAY O 07:37
PROVIDERS: ATTEND Internal Medicine Cardiovascular Disease
DX: I48.4 Atypical atrial flutter (principal); I48.91 Unspecified atrial fibrillation; E78.5 Hyperlipidemia, unspecified; Z95.1 Presence of aortocoronary bypass graft; Z87.891 Personal history of nicotine dependence; Z88.8 Allergy status to other drugs, medicaments and biological substances
CPT/HCPCS: 36415; 80053; 83735; 85025; 85610; 92960; 93005; J2250; J3010; J7030; 85008

== ENCOUNTER 2021-04-25 08:01 | Day surgery (SDC) | payer OTHER ==
[~2021-04-25] VITALS: Ht 177.8 cm; Wt 77.6 kg
[2021-04-25] VITALS (8 sets, daily range): BP systolic 116–131; BP diastolic 63–86
[~2021-04-25 08:01] MED LIST changes: +DOBU1000 IV; -DOBUTAMINE IV
[2021-04-25] MEDS ORDERED: fentaNYL/PF 50MCG/1 ML 2ML syringe IV ONE (08:25)
[2021-04-25] MEDS ORDERED: MIDAZolam 1mg/ml 10ml vial IV ONE (08:25)
[2021-04-25] MEDS ORDERED: normal saline 1000ml 1,000 ML IV SCH (08:25)
[2021-04-25] MEDS ORDERED: AMIO200T62 PO (08:43)
[2021-04-25] MEDS ORDERED: METO50TA7 PO (08:43)
[2021-04-25] MEDS ORDERED: POTA-207 PO (08:43)
[2021-04-25] MEDS ORDERED: FURO-150 PO (08:43)
[2021-04-25 08:45] LABS: BASOPHILS % (AUTO) 0.7 % (0-1); EOSINOPHILS # (AUTO) 0.2 X10'3 (0-0.9); EOSINOPHILS % (AUTO) 3.1 % (0-6); HEMATOCRIT 43.4 % (42.0-52.0); HEMOGLOBIN 13.7 g/dl (14.0-17.9); LYMPHOCYTES # (AUTO) 0.6 X10'3 (1.1-4.8); LYMPHOCYTES % (AUTO) 10.4 % (21-51); MEAN CORPUSCULAR HEMOGLOBIN 26.4 PG (27.0-31.0); MEAN CORPUSCULAR HGB CONC 31.5 g/dL (33.0-36.5); MEAN CORPUSCULAR VOLUME 83.8 FL (78-98); MEAN PLATELET VOLUME 8.1 FL (7.4-10.4); MONOCYTES # (AUTO) 0.5 X10'3 (0-0.9); MONOCYTES % (AUTO) 8.8 % (2-12); NEUTROPHILS # (AUTO) 4.6 X10'3 (1.8-7.7); PLATELET COUNT 199 X10'3 (140-440); RED BLOOD COUNT 5.18 X10'6 (4.70-6.10); RED CELL DISTRIBUTION WIDTH 16.9 % (11.5-14.5)
[2021-04-25] MEDS ORDERED: EZET10TA6 PO (08:48)
[2021-04-25 09:16] LABS: ANION GAP 9 (8-16); BLOOD UREA NITROGEN 23 MG/DL (7-18); BUN/CREATININE RATIO 14.4 (5.4-32.0); CALCIUM 9.4 MG/DL (8.5-10.1); CHLORIDE 109 MMOL/L (99-107); GLUCOSE 98 MG/DL (70-104); MAGNESIUM 2.5 MG/DL (1.5-2.4); POTASSIUM 4.5 MMOL/L (3.5-5.1); SODIUM 146 MMOL/L (135-145); TOTAL CARBON DIOXIDE 27.9 MMOL/L (24-32); eGFR 42 ML/MIN
--- NOTE | 2021-04-25 11:45 | NUR ---
pt able to drink water without distress, call to pt Elizabeth and stated will knot picker cloth at 1300 today.
== END 2021-04-25 13:23 | disposition home or self-care (01) ==
LOC: SSTAY O 08:01
PROVIDERS: ATTEND Internal Medicine Cardiovascular Disease
DX: I48.20 Chronic atrial fibrillation, unspecified (principal); I25.5 Ischemic cardiomyopathy; I25.10 Atherosclerotic heart disease of native coronary artery without angina pectoris; I25.2 Old myocardial infarction; E78.5 Hyperlipidemia, unspecified; Z95.0 Presence of cardiac pacemaker; Z86.73 Personal history of transient ischemic attack (TIA), and cerebral infarction without residual deficits; Z87.11 Personal history of peptic ulcer disease; Z98.890 Other specified postprocedural states; Z95.1 Presence of aortocoronary bypass graft; Z88.8 Allergy status to other drugs, medicaments and biological substances
CPT/HCPCS: 36415; 80048; 83735; 84443; 85025; 85610; 92960; 93005; 94799; J7030

== ENCOUNTER 2021-07-17 11:27 | Day surgery (SDC) | payer OTHER ==
[~2021-07-17 11:27] MED LIST changes: +AMIO200T62 PO; -BISO1TAB38 PO; -DOBU1000 IV; -EPLE25TA4 PO; +EZET10TA6 PO; -FLEC100T2 PO; +FURO-150 PO; -FURO20TA4 PO; +METO50TA7 PO; +POTA-207 PO; -POTA-82 PO; -PSYL575P22 PO
[2021-07-17 14:23] VITALS: BP 116/60
== END 2021-07-17 13:45 | disposition home or self-care (01) ==
LOC: SSTAY O 11:27
PROVIDERS: ATTEND Internal Medicine Cardiovascular Disease
DX: I25.5 Ischemic cardiomyopathy (principal); I51.7 Cardiomegaly; J90 Pleural effusion, not elsewhere classified; Z88.8 Allergy status to other drugs, medicaments and biological substances
CPT/HCPCS: 36569; 36573; 71045; 76942

== ENCOUNTER 2021-08-29 08:47 | Day surgery (SDC) | payer OTHER ==
[2021-08-29] VITALS (13 sets, daily range): BP systolic 110–126; BP diastolic 68–88
[~2021-08-29] VITALS: Ht 177.8 cm; Wt 74.8 kg
[2021-08-29] MEDS ORDERED: MIDAZolam 1mg/ml 10ml vial IV ONE (09:20)
[2021-08-29] MEDS ORDERED: fentaNYL/PF 50MCG/1 ML 2ML syringe IV ONE (09:20)
[2021-08-29] MEDS ORDERED: normal saline 1000ml 1,000 ML IV SCH (09:20)
[2021-08-29 10:18] LABS: EOSINOPHILS # (AUTO) 0.1 X10'3 (0-0.9); EOSINOPHILS % (AUTO) 2.9 % (0-6); HEMATOCRIT 30.2 % (42.0-52.0); HEMOGLOBIN 9.5 g/dl (14.0-17.9); LYMPHOCYTES # (AUTO) 0.4 X10'3 (1.1-4.8); LYMPHOCYTES % (AUTO) 9.5 % (21-51); MEAN CORPUSCULAR HEMOGLOBIN 26.5 PG (27.0-31.0); MEAN CORPUSCULAR HGB CONC 31.4 g/dL (33.0-36.5); MEAN CORPUSCULAR VOLUME 84.5 FL (78-98); MEAN PLATELET VOLUME 8.3 FL (7.4-10.4); MONOCYTES # (AUTO) 0.4 X10'3 (0-0.9); MONOCYTES % (AUTO) 9.2 % (2-12); NEUTROPHILS # (AUTO) 3.3 X10'3 (1.8-7.7); NEUTROPHILS % (AUTO) 77.4 % (42-75); PLATELET COUNT 162 X10'3 (140-440); RED BLOOD COUNT 3.57 X10'6 (4.70-6.10); RED CELL DISTRIBUTION WIDTH 22.4 % (11.5-14.5); WHITE BLOOD COUNT 4.3 X10'3 (4.5-11.0)
[2021-08-29 10:24] LABS: ALBUMIN 3.2 G/DL (3.4-5.0); ANION GAP 8 (8-16); BLOOD UREA NITROGEN 19 MG/DL (7-18); BUN/CREATININE RATIO 13.7 (5.4-32.0); CALCIUM 8.8 MG/DL (8.5-10.1); CHLORIDE 106 MMOL/L (99-107); CREATININE 1.39 MG/DL (0.60-1.10); GLUCOSE 91 MG/DL (70-104); MAGNESIUM 2.1 MG/DL (1.5-2.4); SODIUM 143 MMOL/L (135-145); TOTAL CARBON DIOXIDE 29.5 MMOL/L (24-32); eGFR 49 ML/MIN
[2021-08-29] MEDS ORDERED: NITR0.4T51 SL (10:45)
[2021-08-29] MEDS ORDERED: [UNRECOGNIZED DRUG - CODE] IV (10:45)
[2021-08-29] MEDS ORDERED: FERR-119 PO (10:45)
[2021-08-29] MEDS ORDERED: PANT-47 PO (10:45)
[2021-08-29] MEDS ORDERED: UBID200C18 PO (10:45)
[2021-08-29 10:51] LABS: PLATELET ESTIMATE NORMAL
[2021-08-29 10:52] LABS: HYPOCHROMASIA 1+
[2021-08-29 10:53] LABS: ACANTHOCYTES 2+; ANISOCYTOSIS 3+; ELLIPTOCYTES 1+; SCHISTOCYTES 1+
== END 2021-08-29 12:50 | disposition home or self-care (01) ==
LOC: SSTAY O 08:47
PROVIDERS: ATTEND Internal Medicine Cardiovascular Disease
DX: I48.4 Atypical atrial flutter (principal); I25.5 Ischemic cardiomyopathy; I25.2 Old myocardial infarction; I48.91 Unspecified atrial fibrillation; E78.5 Hyperlipidemia, unspecified; Z87.11 Personal history of peptic ulcer disease; Z86.73 Personal history of transient ischemic attack (TIA), and cerebral infarction without residual deficits; Z79.899 Other long term (current) drug therapy; Z79.01 Long term (current) use of anticoagulants; Z95.1 Presence of aortocoronary bypass graft; Z98.890 Other specified postprocedural states; Z98.1 Arthrodesis status; Z87.891 Personal history of nicotine dependence; Z88.8 Allergy status to other drugs, medicaments and biological substances
CPT/HCPCS: 36415; 80048; 83735; 85025; 85610; 92960; 93005; 94760; 94799; J2250; J3010; J7030; 85008

== ENCOUNTER 2021-09-05 13:22 | Day surgery (SDC) | payer OTHER ==
[2021-09-05] VITALS (13 sets, daily range): BP systolic 96–121; BP diastolic 66–82
[~2021-09-05] VITALS: Ht 177.8 cm; Wt 73.4 kg
[~2021-09-05 13:22] MED LIST changes: +FERR-119 PO; +NITR0.4T51 SL; +PANT-47 PO; +UBID200C18 PO; +[UNRECOGNIZED DRUG - CODE] IV
[2021-09-05] MEDS ORDERED: SODIUM CHLORIDE IV ONE (14:05)
[2021-09-05] MEDS ORDERED: [UNRECOGNIZED DRUG - OTHER] IV ONE (14:05)
[2021-09-05] MEDS ORDERED: MILRINONE LACT IV ONE (14:08)
[2021-09-05] MEDS ORDERED: NORMAL SALINE IV ONE (14:08)
--- NOTE | 2021-09-05 14:25 | NUR ---
Dr. Dobbins at bedside. Orders for milrinone infusion written and faxed to pharmacy.
--- NOTE | 2021-09-05 15:35 | NUR ---
Patient home dobutamine infusion stopped by . Line d/c'd from PICC. Milrinone IV infusion started as ordered.
[2021-09-05] MEDS: milrinone (Primacor) 20mg/D5W 100 ML IV SCH ×2 (15:47→16:51)
--- NOTE | 2021-09-05 17:25 | NUR ---
April BERUMEN from [facility] infusion at bedside. Hospital infusion of milrinone stopped. Home infusion pump with milrinone set-up and infusing on patient at MD ordered dose.
--- NOTE | 2021-09-05 18:05 | NUR ---
Patient's home infusion pump with milrinone infusing. Patient's VSS, no ectopy noted. Patient taken out to 's car in w/c. All belongings with patient on d/c. Patient will call and make f/u appt with Dr. Dobbins on Wednesday. Patient will be following up with [facility] infusion for IV milrinone.
== END 2021-09-05 18:05 | disposition home or self-care (01) ==
LOC: SSTAY O 13:22
PROVIDERS: ATTEND Internal Medicine Cardiovascular Disease
DX: I42.9 Cardiomyopathy, unspecified (principal); I25.5 Ischemic cardiomyopathy
CPT/HCPCS: 96365; 96366; J2260; J3490

== ENCOUNTER 2022-08-13 20:56 | Emergency (ER) | payer MEDICARE, OTHER ==
[~2022-08-13] VITALS: Ht 154.9 cm; Wt 69.1 kg
[2022-08-13] MEDS ORDERED: normal saline 500ml IV soln 500 ML IV ONE (23:20)
[2022-08-13 23:56] LABS: BASOPHILS % (AUTO) 0.8 % (0-1); EOSINOPHILS # (AUTO) 0.2 X10'3 (0-0.9); EOSINOPHILS % (AUTO) 4.1 % (0-6); HEMATOCRIT 45.3 % (42.0-52.0); HEMOGLOBIN 14.9 g/dl (14.0-17.9); LYMPHOCYTES # (AUTO) 0.8 X10'3 (1.1-4.8); LYMPHOCYTES % (AUTO) 13.6 % (21-51); MEAN CORPUSCULAR HEMOGLOBIN 29.7 PG (27.0-31.0); MEAN CORPUSCULAR VOLUME 90.2 FL (78-98); MEAN PLATELET VOLUME 6.7 FL (7.4-10.4); MONOCYTES # (AUTO) 0.8 X10'3 (0-0.9); MONOCYTES % (AUTO) 13.4 % (2-12); NEUTROPHILS % (AUTO) 68.1 % (42-75); PLATELET COUNT 179 X10'3 (140-440); RED BLOOD COUNT 5.02 X10'6 (4.70-6.10); RED CELL DISTRIBUTION WIDTH 15.1 % (11.5-14.5); WHITE BLOOD COUNT 5.8 X10'3 (4.5-11.0)
[2022-08-14 00:09] LABS: ALANINE AMINOTRANSFERASE 298 U/L (12-78); ALBUMIN 3.5 G/DL (3.4-5.0); ALKALINE PHOSPHATASE 95 IU/L (46-116); ANION GAP 9 (8-16); ASPARTATE AMINO TRANSFERASE 202 U/L (10-37); BILIRUBIN,TOTAL 1.4 MG/DL (0.1-1.0); BLOOD UREA NITROGEN 22 MG/DL (7-18); BUN/CREATININE RATIO 14.3 (10.0-20.0); CALCIUM 9.1 MG/DL (8.5-10.1); CHLORIDE 104 MMOL/L (99-107); CREATININE 1.54 MG/DL (0.60-1.10); GLUCOSE 97 MG/DL (70-104); LIPASE 105 U/L (73-393); POTASSIUM 3.5 MMOL/L (3.5-5.1); SODIUM 136 MMOL/L (135-145); TOTAL CARBON DIOXIDE 23.5 MMOL/L (24-32); eGFR 43 ML/MIN
[2022-08-14] MEDS ORDERED: iohexol 300mg/ml 100ml inj. ONE (00:19)
[2022-08-14 02:39] VITALS: BP 97/58
[2022-08-15 14:10] LABS: HBSAG SCREEN Negative (Negative); HEP A AB, IGM Negative (Negative); HEPATITIS C VIRUS ANTIBODY Non Reactive (Non Reactive)
== END 2022-08-14 02:40 | disposition home or self-care (01) ==
LOC: ER 20:57
DX: R19.7 Diarrhea, unspecified (principal); R10.9 Unspecified abdominal pain; K64.8 Other hemorrhoids; I50.9 Heart failure, unspecified; Z88.8 Allergy status to other drugs, medicaments and biological substances; Z88.1 Allergy status to other antibiotic agents; Z79.899 Other long term (current) drug therapy; Z79.1 Long term (current) use of non-steroidal anti-inflammatories (NSAID)
CPT/HCPCS: 36415; 74177; 80053; 83605; 83690; 83735; 85025; 85610; 86709; 86803; 87340; 99285; J3490; J7040; Q9967; 87522

== ENCOUNTER → 2023-01-27 | Day surgery (SDC) | payer OTHER ==
[~2023-01-27] MED LIST changes: +ALBU18HF2 INH; +AMI200T PO; -AMIO200T62 PO; +APIX2.5T PO; -APIX5TAB3 PO; -ATOR20TA66 PO; +ATOR40TA72 PO; +EZET10TA48 PO; -EZET10TA6 PO; -FERR-119 PO; -FURO-150 PO; +FURO20TA4 PO; +LACT1CAP74 PO; -LOSA25TA96 PO; +METO-384 PO; -METO50TA7 PO; +MILR20PI IV; -NITR0.4T51 SL; -PANT-47 PO; -POTA-207 PO; +POTA-84 PO; -UBID200C18 PO; -[UNRECOGNIZED DRUG - CODE] IV
== END | disposition home or self-care (01) ==
LOC: SSTAY O 09:43
PROVIDERS: ATTEND Internal Medicine Cardiovascular Disease
DX: I25.5 Ischemic cardiomyopathy (principal)
CPT/HCPCS: 36569; 36573; 71045; 76942